=== PATIENT | male | born 1930 | race Caucasian/White ===

== ENCOUNTER 2018-01-01 08:26 | Emergency (ER) | payer MEDICARE, BC ==
--- NOTE | 2018-01-01 08:30 | ED ---
Fall HPI - General Stated Complaint: FALL Time Seen by Provider: 01/01/18 08:28 Source: patient, EMS Mode of arrival: EMS Limitations: no limitations - History of Present Illness Initial Comments: This is a 88-year-old male presents emergency department via EMS from [facility] for a fall. Patient states that he said to get up early this morning in the dark states that he tripped and fell onto his butt. Patient states his pain in his buttocks region and low back. He states is more off to the right side. He denies any head injury. Patient has been ambulatory this morning with moderate discomfort. Patient denies any bowel or bladder incontinence or retention. Denies any abdominal pain including nausea vomiting diarrhea constipation. Denies any dysuria no hematuria. - Related Data Home Medications Medication Instructions Recorded Confirmed Cyanocobalamin (Vitamin B-12) 1,000 mcg PO DAILY 01/01/18 01/01/18 [Vitamin B-12] Docusate [Colace] 100 mg PO DAILY 01/01/18 01/01/18 Vit C/E/Zn/Coppr/Lutein/Zeaxan 1 cap PO DAILY 01/01/18 01/01/18 [Preservision Areds 2 Softgel] Allergies Allergy/AdvReac Type Severity Reaction Status Date / Time No Known Allergies Allergy Verified 01/01/18 08:48 Review of Systems ROS Statement: Those systems with pertinent positive or pertinent negative responses have been documented in the HPI. ROS Other: All systems not noted in ROS Statement are negative. General Exam General appearance: alert, in no apparent distress Head exam: Present: atraumatic, normocephalic, normal inspection Neck exam: Present: normal inspection, full ROM. Absent: tenderness, meningismus, lymphadenopathy Respiratory exam: Present: normal lung sounds bilaterally. Absent: respiratory distress, wheezes, rales, rhonchi, stridor Cardiovascular Exam: Present: regular rate, normal rhythm, normal heart sounds. Absent: systolic murmur, diastolic murmur, rubs, gallop, clicks GI/Abdominal exam: Present: soft, normal bowel sounds. Absent: distended, tenderness, guarding, rebound, rigid Extremities exam: Present: normal inspection, full ROM, normal capillary refill. Absent: tenderness, pedal edema, joint swelling, calf tenderness Back exam: Present: normal inspection, full ROM, tenderness (Minimal right sided lower lumbar tenderness), paraspinal tenderness. Absent: vertebral tenderness Neurological exam: Present: alert, oriented X3, CN II-XII intact, reflexes normal. Absent: motor sensory deficit Skin exam: Present: warm, dry, intact, normal color. Absent: rash Course Vital Signs 01/01/18 08:29 Temperature 97.2 F L Pulse Rate 60 Respiratory 18 Rate Blood Pressure 136/74 O2 Sat by Pulse 100 Oximetry Medical Decision Making - Medical Decision Making 87-year-old male presented from it for a fall. Patient fell by tripping onto his buttocks region. He had x-rays of his lumbar spine and pelvis which showed degenerative changes but no acute fracture. Family is concerned as he has had hard stool out of his ostomy. Patient did have a KUB here which showed extensive constipation. Patient will be advised to use a laxative and increase fluid intake. Patient will follow-up with primary care physician and return for any worsening symptoms. Disposition Clinical Impression: Fall, Back pain, Constipation Disposition: HOME SELF-CARE Condition: Stable Instructions: Back Pain (ED) Additional Instructions: Please return to the Emergency Department if symptoms worsen or any other concerns. Is patient prescribed a controlled substance at d/c from ED?: No Referrals: None,Stated [REFERRING] - 1-2 days Time of Disposition: 09:41
[2018-01-01 08:42] VITALS: PULSE 60; RESP 18; TEMP 97.2
--- NOTE | 2018-01-01 08:54 | XR ---
AP pelvis HISTORY: Trauma and pain Frontal view of the pelvis submitted. Bone mineralization, joint spaces and alignment are maintained. Degenerative disc changes are present in the visualized lumbar spine. Vascular calcification noted in the pelvis. Ostomy suspected in the left lower quadrant. Surgical clips present in the pelvis. IMPRESSION: No acute fracture or dislocation.
--- NOTE | 2018-01-01 08:56 | XR ---
EXAMINATION TYPE: XR lumbosacral spine min 4V DATE OF EXAM: 01/01/2018 COMPARISON: NONE HISTORY: 87-year-old male low back pain after fall TECHNIQUE: 5 views FINDINGS: Osteopenia with levoconvex scoliosis centered along the upper lumbar spine. No pars interarticularis defect seen. Atherosclerotic calcifications throughout the abdominal aorta with ectasia 2.7 cm. Hypertrophic facet arthropathy throughout. There is moderate to advanced dissection plate degenerativ e changes also present throughout with grade 1 retrolisthesis at L4-L5 and trace grade 1 anterolisthe sis at L3-L4. Vertebral body heights are maintained. Disc interspace narrowing with endplate sclerosi s and some vacuum phenomenon at multiple levels. IMPRESSION: 1. Osteopenia and a degenerated levoconvex scoliosis. Moderate to advanced disc/endplate degenerative change at multiple levels. 2. Hypertrophic facet arthropathy throughout with trace grade 1 spondylolistheses at L3-L4 and L4-L5. 3. No vertebral compression collapse. 4. Calcified and ectatic abdominal aorta at 2.7 cm.
--- NOTE | 2018-01-01 09:34 | XR ---
EXAMINATION TYPE: XR KUB DATE OF EXAM: 01/01/2018 COMPARISON: NONE HISTORY: Constipation TECHNIQUE: One view abdominal series FINDINGS: The osseous structures are intact. The bowel gas pattern is nonspecific. Degenerative change of the spine arthropathy of the hips. Calcification the right upper quadrant could be related the gallbladde r. The heart appears to be enlarged. Pleural thickening or tiny effusion at the left lung base with s ubsegmental atelectasis. Suggestion of an ostomy in the left abdomen overlying the pelvis. IMPRESSION: 1. Nonspecific abdomen. Extensive retained fecal debris.
[2018-01-01 09:54] VITALS: BP 126/82
== END 2018-01-01 09:54 | disposition home or self-care (01) ==
LOC: EC 08:26
DX: M54.5 Low back pain (principal); K59.00 Constipation, unspecified; Z79.899 Other long term (current) drug therapy; W01.0XXA Fall on same level from slipping, tripping and stumbling without subsequent striking against object, initial encounter
CPT/HCPCS: 72110; 72170; 74018; 99283

== ENCOUNTER 2018-04-25 14:25 | Emergency (ER) | payer MEDICARE, BC ==
[2018-04-25 14:31] VITALS: TEMP 97.6
[2018-04-25] MEDS ORDERED: SODIUM CHLORIDE 0.9% 500 ML 500 ML IV ONE (15:04)
--- NOTE | 2018-04-25 15:13 | ED ---
General Adult HPI - General Chief complaint: Altered Mental Status Stated complaint: Poss uti Time Seen by Provider: 04/25/18 14:53 Source: patient, EMS, RN notes reviewed, old records reviewed Mode of arrival: EMS Limitations: altered mental status - History of Present Illness Initial comments: 87-year-old male presenting from assisted living facility for evaluation of worsening confusion and aggression. Patient has history of dementia, over the past several days he's had some worsening aggression and agitation. According to his son he's been somewhat more confused. There is concern for urinary tract infection by the patient's family. No reported history nausea vomiting or diarrhea. No history of fever. No reported focal numbness or weakness. Patient has no pain complaints. - Related Data Home Medications Medication Instructions Recorded Confirmed Cyanocobalamin (Vitamin B-12) 1,000 mcg PO DAILY 01/01/18 01/01/18 [Vitamin B-12] Docusate [Colace] 100 mg PO DAILY 01/01/18 01/01/18 Vit C/E/Zn/Coppr/Lutein/Zeaxan 1 cap PO DAILY 01/01/18 01/01/18 [Preservision Areds 2 Softgel] Previous Rx's Medication Instructions Recorded LORazepam [Ativan] 0.5 mg PO BID PRN 3 Days #10 tab 04/25/18 QUEtiapine [SEROquel] 25 mg PO HS #30 tab 04/25/18 Allergies Allergy/AdvReac Type Severity Reaction Status Date / Time No Known Allergies Allergy Verified 04/25/18 14:31 Review of Systems ROS Statement: Those systems with pertinent positive or pertinent negative responses have been documented in the HPI. ROS Other: All systems not noted in ROS Statement are negative. Past Medical History Past Medical History: Cancer History of Any Multi-Drug Resistant Organisms: None Reported Past Surgical History: Bowel Resection Additional Past Surgical History / Comment(s): colostomy Past Psychological History: No Psychological Hx Reported Smoking Status: Former smoker Past Alcohol Use History: None Reported Past Drug Use History: None Reported General Exam Limitations: altered mental status General appearance: alert, in no apparent distress Head exam: Present: atraumatic, normocephalic Eye exam: Present: normal appearance, PERRL, EOMI ENT exam: Present: normal exam Neck exam: Present: normal inspection. Absent: tenderness, meningismus Respiratory exam: Present: normal lung sounds bilaterally. Absent: respiratory distress, wheezes Cardiovascular Exam: Present: regular rate, normal rhythm GI/Abdominal exam: Present: soft. Absent: distended, tenderness, guarding Extremities exam: Present: normal inspection, full ROM Neurological exam: Present: alert, CN II-XII intact. Absent: oriented X3, motor sensory deficit Psychiatric exam: Present: normal affect, normal mood Skin exam: Present: warm, dry, intact. Absent: cyanosis, diaphoretic Course Vital Signs 04/25/18 04/25/18 14:28 16:02 Temperature 97.6 F Pulse Rate 75 69 Respiratory 16 18 Rate Blood Pressure 143/76 132/75 O2 Sat by Pulse 100 98 Oximetry EKG Findings - EKG Comments: EKG Findings:: EKG: Sinus rhythm with first-degree AV block, low voltage QRS, rate of 68, MI interval 2:30, QRS duration 72, QTC 450 Medical Decision Making - Medical Decision Making 87-year-old male history of dementia presents with worsening confusion, hallucination, aggression and agitation. Patient is worked up in the emergency department, head CT negative for acute intracranial pathology, chest x-ray negative for focal pneumonia, urinalysis negative for infection. Patient has normal CBC and normal CMP. Initial plan per family for patient to be admitted while awaiting stabilization of mood. However after discussion, it is decided that patient will be discharged home on Seroquel and a short course of Ativan. I did discuss with the patient's covering physician Dr. Fregoso, she was agreeable with observation however she is recommended Seroquel daily at bedtime as well. Patient's son was at bedside is agreeable with plan. - Lab Data Result diagrams: 04/25/18 15:27 04/25/18 15:27 Lab Results 04/25/18 04/25/18 04/25/18 Range/Units 15:27 15:27 15:27 WBC 8.9 (3.8-10.6) k/uL RBC 3.81 L (4.30-5.90) m/uL Hgb 12.0 L (13.0-17.5) gm/dL Hct 37.1 L (39.0-53.0) % MCV 97.2 (80.0-100.0) fL MCH 31.4 (25.0-35.0) pg MCHC 32.3 (31.0-37.0) g/dL RDW 13.6 (11.5-15.5) % Plt Count 191 (150-450) k/uL Neutrophils % 74 % Lymphocytes % 14 % Monocytes % 7 % Eosinophils % 2 % Basophils % 1 % Neutrophils # 6.6 (1.3-7.7) k/uL Lymphocytes # 1.3 (1.0-4.8) k/uL Monocytes # 0.7 (0-1.0) k/uL Eosinophils # 0.2 (0-0.7) k/uL Basophils # 0.0 (0-0.2) k/uL PT 11.4 (9.0-12.0) sec INR 1.2 H (<1.2) APTT 24.1 (22.0-30.0) sec Sodium 141 (137-145) mmol/L Potassium 4.3 (3.5-5.1) mmol/L Chloride 109 H (98-107) mmol/L Carbon Dioxide 26 (22-30) mmol/L Anion Gap 6 mmol/L BUN 18 (9-20) mg/dL Creatinine 0.89 (0.66-1.25) mg/dL Est GFR (CKD-EPI)AfAm 88 (>60 ml/min/1.73 sqM) Est GFR (CKD-EPI)NonAf 76 (>60 ml/min/1.73 sqM) Glucose 92 (74-99) mg/dL Calcium 9.3 (8.4-10.2) mg/dL Total Bilirubin 0.9 (0.2-1.3) mg/dL AST 44 (17-59) U/L ALT 27 (21-72) U/L Alkaline Phosphatase 35 L (38-126) U/L Total Protein 5.7 L (6.3-8.2) g/dL Albumin 3.3 L (3.5-5.0) g/dL Urine Color Urine Appearance (Clear) Urine pH (5.0-8.0) Ur Specific [place] (1.001-1.035) Urine Protein (Negative) Urine Glucose (UA) (Negative) Urine Ketones (Negative) Urine Blood (Negative) Urine Nitrite (Negative) Urine Bilirubin (Negative) Urine Urobilinogen (<2.0) mg/dL Ur Leukocyte Esterase (Negative) Urine RBC (0-5) /hpf Urine WBC (0-5) /hpf Urine Mucus (None) /hpf 04/25/18 Range/Units 15:27 WBC (3.8-10.6) k/uL RBC (4.30-5.90) m/uL Hgb (13.0-17.5) gm/dL Hct (39.0-53.0) % MCV (80.0-100.0) fL MCH (25.0-35.0) pg MCHC (31.0-37.0) g/dL RDW (11.5-15.5) % Plt Count (150-450) k/uL Neutrophils % % Lymphocytes % % Monocytes % % Eosinophils % % Basophils % % Neutrophils # (1.3-7.7) k/uL Lymphocytes # (1.0-4.8) k/uL Monocytes # (0-1.0) k/uL Eosinophils # (0-0.7) k/uL Basophils # (0-0.2) k/uL PT (9.0-12.0) sec INR (<1.2) APTT (22.0-30.0) sec Sodium (137-145) mmol/L Potassium (3.5-5.1) mmol/L Chloride (98-107) mmol/L Carbon Dioxide (22-30) mmol/L Anion Gap mmol/L BUN (9-20) mg/dL Creatinine (0.66-1.25) mg/dL Est GFR (CKD-EPI)AfAm (>60 ml/min/1.73 sqM) Est GFR (CKD-EPI)NonAf (>60 ml/min/1.73 sqM) Glucose (74-99) mg/dL Calcium (8.4-10.2) mg/dL Total Bilirubin (0.2-1.3) mg/dL AST (17-59) U/L ALT (21-72) U/L Alkaline Phosphatase (38-126) U/L Total Protein (6.3-8.2) g/dL Albumin (3.5-5.0) g/dL Urine Color Yellow Urine Appearance Clear (Clear) Urine pH 6.5 (5.0-8.0) Ur Specific [place] 1.012 (1.001-1.035) Urine Protein Negative (Negative) Urine Glucose (UA) Negative (Negative) Urine Ketones Negative (Negative) Urine Blood Negative (Negative) Urine Nitrite Negative (Negative) Urine Bilirubin Negative (Negative) Urine Urobilinogen <2.0 (<2.0) mg/dL Ur Leukocyte Esterase Negative (Negative) Urine RBC 2 (0-5) /hpf Urine WBC <1 (0-5) /hpf Urine Mucus Rare H (None) /hpf Disposition Clinical Impression: Dementia Disposition: HOME SELF-CARE Condition: Fair Instructions: Dementia (ED) Prescriptions: LORazepam [Ativan] 0.5 mg PO BID PRN 3 Days #10 tab PRN Reason: Agitation QUEtiapine [SEROquel] 25 mg PO HS #30 tab Is patient prescribed a controlled substance at d/c from ED?: No Referrals: Manan Muñoz MD [Primary Care Provider] - 1-2 days Time of Disposition: 17:23
[2018-04-25 15:44] LABS: INR 1.2 (<1.2); Partial Thromboplastin Time 24.1 sec (22.0-30.0); Prothrombin Time 11.4 sec (9.0-12.0)
[2018-04-25 15:45] LABS: Mucus,Urine Rare /hpf; RBC,Urine 2 /hpf (0-5); WBC,Urine <1 /hpf (0-5)
[2018-04-25 15:47] LABS: Albumin 3.3 g/dL (3.5-5.0); Calcium 9.3 mg/dL (8.4-10.2); Potassium 4.3 mmol/L (3.5-5.1); Total Bilirubin 0.9 mg/dL (0.2-1.3); Total Protein 5.7 g/dL (6.3-8.2)
[2018-04-25 15:48] LABS: Appearance,Urine Clear (Clear); Bilirubin,Urine Negative (Negative); Blood,Urine Negative (Negative); Color,Urine Yellow; Glucose,Urine (UA) Negative (Negative); Ketones,Urine Negative (Negative); Leukocyte Esterase,Urine Negative (Negative); Nitrite,Urine Negative (Negative); PH, Urine 6.5 (5.0-8.0); Protein,Urine Negative (Negative); Specific Gravity,Urine 1.012 (1.001-1.035); Urobilinogen,Urine <2.0 mg/dL (<2.0)
--- NOTE | 2018-04-25 15:59 | CT ---
EXAMINATION TYPE: CT brain wo con DATE OF EXAM: 04/25/2018 COMPARISON: None HISTORY: AMS CT DLP: A1051.4 mGycm Automated exposure control for dose reduction was used. FINDINGS: There is cerebral cortical atrophy. There is no mass effect nor midline shift. There is no sign of in tracranial hemorrhage. The calvarium is intact. IMPRESSION: CEREBRAL ATROPHY. NO ACUTE INTRACRANIAL ABNORMALITY.
--- NOTE | 2018-04-25 16:01 | XR ---
EXAMINATION TYPE: XR chest 2V DATE OF EXAM: 04/25/2018 COMPARISON: 11/27/2010 HISTORY: Altered mental status TECHNIQUE: Frontal and lateral views of the chest are obtained. FINDINGS: There is no heart failure nor confluent pneumonic infiltrate. Thoracic aorta is atheromato us. Costophrenic angles are clear. The bony thorax is intact. IMPRESSION: No active cardiopulmonary disease. No change. Normal heart.
[2018-04-25 16:03] VITALS: RESP 18
[2018-04-25 16:04] LABS: Basophils % (A) 1 %; Eosinophils # (A) 0.2 k/uL (0-0.7); Eosinophils % (A) 2 %; HCT 37.1 % (39.0-53.0); Lymphocytes # (A) 1.3 k/uL (1.0-4.8); Lymphocytes % (A) 14 %; MCH 31.4 pg (25.0-35.0); MCHC 32.3 g/dL (31.0-37.0); MCV 97.2 fL (80.0-100.0); Mean Platelet Volume 6.8; Monocytes # (A) 0.7 k/uL (0-1.0); Monocytes % (A) 7 %; Neutrophils # (A) 6.6 k/uL (1.3-7.7); Neutrophils % (A) 74 %; Platelet Count 191 k/uL (150-450); RBC 3.81 m/uL (4.30-5.90); RDW 13.6 % (11.5-15.5); WBC 8.9 k/uL (3.8-10.6)
[2018-04-25] MEDS ORDERED: QUEtiapine 25 MG TAB PO STA (16:43)
[2018-04-25] MEDS ORDERED: LORazepam 1 MG TAB PO STA (17:33)
[2018-04-25 17:45] VITALS: BP 135/82; PULSE 77
== END 2018-04-25 17:44 | disposition home or self-care (01) ==
LOC: EC 14:25
DX: F03.91 Unspecified dementia, unspecified severity, with behavioral disturbance (principal); Z85.9 Personal history of malignant neoplasm, unspecified; Z87.891 Personal history of nicotine dependence; Z79.899 Other long term (current) drug therapy
CPT/HCPCS: 36415; 70450; 71046; 80053; 81003; 85025; 85610; 85730; 93005; 96360; 99285

== ENCOUNTER 2018-04-27 13:00 | Inpatient (IN) | payer MEDICARE, BC ==
--- NOTE | 2018-04-27 13:29 | ED ---
General Adult HPI - General Chief complaint: Recheck/Abnormal Lab/Rx Stated complaint: Med reaction Time Seen by Provider: 04/27/18 13:15 Source: EMS, RN notes reviewed Mode of arrival: EMS Limitations: altered mental status - History of Present Illness Initial comments: Patient is a pleasant 87-year-old male presenting to the emergency Department with complaints of reported change in mental status. Patient is altered and provides limited history. Patient was reportedly recently in the emergency department and started on Seroquel. Patient denies any complaints. - Related Data Home Medications Medication Instructions Recorded Confirmed Docusate [Colace] 100 mg PO HS 01/01/18 04/27/18 Vit C/E/Zn/Coppr/Lutein/Zeaxan 1 cap PO DAILY 01/01/18 04/27/18 [Preservision Areds 2 Softgel] Acetaminophen/Diphenhydramine 1 - 2 tab PO HS 04/27/18 04/27/18 [Tylenol PM 500-25mg] Aspirin EC [Ecotrin Low Dose] 81 mg PO HS 04/27/18 04/27/18 Hydrochlorothiazide 12.5 mg PO DAILY 04/27/18 04/27/18 LORazepam [Ativan] 0.5 mg PO BID PRN 04/27/18 04/27/18 Melatonin 10 mg PO HS PRN 04/27/18 04/27/18 OLANZapine [ZyPREXA] 2.5 mg PO HS 04/27/18 04/27/18 QUEtiapine [SEROquel] 25 mg PO HS 04/27/18 04/27/18 Super B Complex 1 tab PO DAILY 04/27/18 04/27/18 diphenhydrAMINE [Benadryl] 25 mg PO HS PRN 04/27/18 04/27/18 Allergies Allergy/AdvReac Type Severity Reaction Status Date / Time No Known Allergies Allergy Verified 04/27/18 14:41 Review of Systems ROS Statement: Those systems with pertinent positive or pertinent negative responses have been documented in the HPI. ROS Other: All systems not noted in ROS Statement are negative. Constitutional: Denies: fever Eyes: Denies: eye pain ENT: Denies: ear pain Respiratory: Denies: dyspnea Cardiovascular: Denies: chest pain Endocrine: Denies: fatigue Gastrointestinal: Denies: abdominal pain Genitourinary: Denies: dysuria Musculoskeletal: Denies: back pain Skin: Denies: rash Neurological: Reports: confusion Past Medical History Past Medical History: Cancer History of Any Multi-Drug Resistant Organisms: None Reported Past Surgical History: Bowel Resection Additional Past Surgical History / Comment(s): colostomy Past Psychological History: No Psychological Hx Reported Smoking Status: Former smoker Past Alcohol Use History: None Reported Past Drug Use History: None Reported General Exam Limitations: altered mental status General appearance: alert, in no apparent distress Head exam: Present: atraumatic Eye exam: Present: normal appearance, PERRL, EOMI ENT exam: Present: normal oropharynx Neck exam: Present: normal inspection. Absent: tenderness Respiratory exam: Present: normal lung sounds bilaterally Cardiovascular Exam: Present: regular rate, normal rhythm GI/Abdominal exam: Present: soft. Absent: tenderness Extremities exam: Present: normal inspection. Absent: pedal edema, calf tenderness Neurological exam: Present: alert, altered, CN II-XII intact. Absent: motor sensory deficit Expanded Patient oriented to: Absent: person, place, time Cranial nerves: EOM's Intact: Normal Motor strength exam: RUE: 5, LUE: 5, RLE: 5, LLE: 5 Eye Response: (4) open spontaneously Motor Response: (6) obeys commands Verbal Response: (3) inappropriate words Psychiatric exam: Present: normal affect, normal mood Skin exam: Present: normal color Course Vital Signs 04/27/18 04/27/18 04/27/18 13:07 13:30 14:00 Temperature 98.0 F Pulse Rate 66 71 73 Respiratory 20 15 16 Rate Blood Pressure 157/83 157/83 145/78 O2 Sat by Pulse 96 98 97 Oximetry 04/27/18 04/27/18 14:30 15:30 Temperature Pulse Rate 75 71 Respiratory 14 18 Rate Blood Pressure 141/81 142/79 O2 Sat by Pulse 96 Oximetry EKG Findings - EKG Comments: EKG Findings:: Sinus rhythm at 71. First-degree AV block NH of 210. QRS 96. QT 448. QTC 46. Normal axis. Q wave in V1 and V2. No acute ST change. Medical Decision Making - Medical Decision Making Patient reevaluated. Patient was somewhat agitated earlier with nursing staff. Family is updated on results and plan. Case was discussed in detail with Dr. Cochran, covering for Dr. Muñoz, who will admit. - Lab Data Result diagrams: 04/27/18 13:36 04/27/18 13:36 Lab Results 04/27/18 04/27/18 04/27/18 Range/Units 13:36 13:36 13:36 WBC 8.2 (3.8-10.6) k/uL RBC 3.91 L (4.30-5.90) m/uL Hgb 12.6 L (13.0-17.5) gm/dL Hct 37.5 L (39.0-53.0) % MCV 96.1 (80.0-100.0) fL MCH 32.3 (25.0-35.0) pg MCHC 33.7 (31.0-37.0) g/dL RDW 13.5 (11.5-15.5) % Plt Count 199 (150-450) k/uL Neutrophils % 71 % Lymphocytes % 17 % Monocytes % 7 % Eosinophils % 4 % Basophils % 1 % Neutrophils # 5.8 (1.3-7.7) k/uL Lymphocytes # 1.4 (1.0-4.8) k/uL Monocytes # 0.6 (0-1.0) k/uL Eosinophils # 0.4 (0-0.7) k/uL Basophils # 0.1 (0-0.2) k/uL PT (9.0-12.0) sec INR (<1.2) APTT (22.0-30.0) sec Sodium 140 (137-145) mmol/L Potassium 4.0 (3.5-5.1) mmol/L Chloride 107 (98-107) mmol/L Carbon Dioxide 29 (22-30) mmol/L Anion Gap 4 mmol/L BUN 16 (9-20) mg/dL Creatinine 0.76 (0.66-1.25) mg/dL Est GFR (CKD-EPI)AfAm >90 (>60 ml/min/1.73 sqM) Est GFR (CKD-EPI)NonAf 81 (>60 ml/min/1.73 sqM) Glucose 91 (74-99) mg/dL Calcium 9.5 (8.4-10.2) mg/dL Total Bilirubin 1.0 (0.2-1.3) mg/dL AST 84 H (17-59) U/L ALT 37 (21-72) U/L Alkaline Phosphatase 35 L (38-126) U/L Total Creatine Kinase 1230 H* (55-170) U/L CK-MB (CK-2) 26.2 H (0.0-2.4) ng/mL CK-MB (CK-2) Rel Index 2.1 Troponin I 0.134 H* (0.000-0.034) ng/mL Total Protein 6.0 L (6.3-8.2) g/dL Albumin 3.5 (3.5-5.0) g/dL Urine Color Urine Appearance (Clear) Urine pH (5.0-8.0) Ur Specific [place] (1.001-1.035) Urine Protein (Negative) Urine Glucose (UA) (Negative) Urine Ketones (Negative) Urine Blood (Negative) Urine Nitrite (Negative) Urine Bilirubin (Negative) Urine Urobilinogen (<2.0) mg/dL Ur Leukocyte Esterase (Negative) Urine Opiates Screen (NotDetected) Ur Oxycodone Screen (NotDetected) Urine Methadone Screen (NotDetected) Ur Propoxyphene Screen (NotDetected) Ur Barbiturates Screen (NotDetected) U Tricyclic Antidepress (NotDetected) Ur Phencyclidine Scrn (NotDetected) Ur Amphetamines Screen (NotDetected) U Methamphetamines Scrn (NotDetected) U Benzodiazepines Scrn (NotDetected) Urine Cocaine Screen (NotDetected) U Marijuana (THC) Screen (NotDetected) 04/27/18 04/27/18 Range/Units 13:36 14:00 WBC (3.8-10.6) k/uL RBC (4.30-5.90) m/uL Hgb (13.0-17.5) gm/dL Hct (39.0-53.0) % MCV (80.0-100.0) fL MCH (25.0-35.0) pg MCHC (31.0-37.0) g/dL RDW (11.5-15.5) % Plt Count (150-450) k/uL Neutrophils % % Lymphocytes % % Monocytes % % Eosinophils % % Basophils % % Neutrophils # (1.3-7.7) k/uL Lymphocytes # (1.0-4.8) k/uL Monocytes # (0-1.0) k/uL Eosinophils # (0-0.7) k/uL Basophils # (0-0.2) k/uL PT 11.1 (9.0-12.0) sec INR 1.2 H (<1.2) APTT 24.4 (22.0-30.0) sec Sodium (137-145) mmol/L Potassium (3.5-5.1) mmol/L Chloride (98-107) mmol/L Carbon Dioxide (22-30) mmol/L Anion Gap mmol/L BUN (9-20) mg/dL Creatinine (0.66-1.25) mg/dL Est GFR (CKD-EPI)AfAm (>60 ml/min/1.73 sqM) Est GFR (CKD-EPI)NonAf (>60 ml/min/1.73 sqM) Glucose (74-99) mg/dL Calcium (8.4-10.2) mg/dL Total Bilirubin (0.2-1.3) mg/dL AST (17-59) U/L ALT (21-72) U/L Alkaline Phosphatase (38-126) U/L Total Creatine Kinase (55-170) U/L CK-MB (CK-2) (0.0-2.4) ng/mL CK-MB (CK-2) Rel Index Troponin I (0.000-0.034) ng/mL Total Protein (6.3-8.2) g/dL Albumin (3.5-5.0) g/dL Urine Color Yellow Urine Appearance Clear (Clear) Urine pH 5.5 (5.0-8.0) Ur Specific [place] 1.015 (1.001-1.035) Urine Protein Negative (Negative) Urine Glucose (UA) Negative (Negative) Urine Ketones Trace H (Negative) Urine Blood Negative (Negative) Urine Nitrite Negative (Negative) Urine Bilirubin Negative (Negative) Urine Urobilinogen <2.0 (<2.0) mg/dL Ur Leukocyte Esterase Negative (Negative) Urine Opiates Screen Not Detected (NotDetected) Ur Oxycodone Screen Not Detected (NotDetected) Urine Methadone Screen Not Detected (NotDetected) Ur Propoxyphene Screen Not Detected (NotDetected) Ur Barbiturates Screen Not Detected (NotDetected) U Tricyclic Antidepress Detected H (NotDetected) Ur Phencyclidine Scrn Not Detected (NotDetected) Ur Amphetamines Screen Not Detected (NotDetected) U Methamphetamines Scrn Not Detected (NotDetected) U Benzodiazepines Scrn Detected H (NotDetected) Urine Cocaine Screen Not Detected (NotDetected) U Marijuana (THC) Screen Not Detected (NotDetected) - Radiology Data Radiology results: report reviewed (Computed tomography scan of the brain reveals no acute process), image reviewed (Chest x-ray shows no acute process) Disposition Clinical Impression: Altered mental status Disposition: ADMITTED IP TO THIS HOSP Is patient prescribed a controlled substance at d/c from ED?: No Referrals: None,Stated [REFERRING] - 1-2 days Decision Time: 16:23
[2018-04-27 14:00] LABS: Basophils # (A) 0.1 k/uL (0-0.2); Basophils % (A) 1 %; Eosinophils # (A) 0.4 k/uL (0-0.7); Eosinophils % (A) 4 %; HCT 37.5 % (39.0-53.0); HGB 12.6 gm/dL (13.0-17.5); Lymphocytes # (A) 1.4 k/uL (1.0-4.8); Lymphocytes % (A) 17 %; MCH 32.3 pg (25.0-35.0); MCHC 33.7 g/dL (31.0-37.0); MCV 96.1 fL (80.0-100.0); Mean Platelet Volume 7.6; Monocytes # (A) 0.6 k/uL (0-1.0); Monocytes % (A) 7 %; Neutrophils # (A) 5.8 k/uL (1.3-7.7); Neutrophils % (A) 71 %; Platelet Count 199 k/uL (150-450); RBC 3.91 m/uL (4.30-5.90); RDW 13.5 % (11.5-15.5); WBC 8.2 k/uL (3.8-10.6)
[2018-04-27 14:10] LABS: ALT 37 U/L (21-72); AST 84 U/L (17-59); Albumin 3.5 g/dL (3.5-5.0); Alkaline Phosphatase 35 U/L (38-126); Anion Gap 4 mmol/L; Blood Urea Nitrogen 16 mg/dL (9-20); Calcium 9.5 mg/dL (8.4-10.2); Carbon Dioxide 29 mmol/L (22-30); Chloride 107 mmol/L (98-107); Glucose 91 mg/dL (74-99); Sodium 140 mmol/L (137-145)
[2018-04-27 14:15] LABS: INR 1.2 (<1.2); Partial Thromboplastin Time 24.4 sec (22.0-30.0); Prothrombin Time 11.1 sec (9.0-12.0)
[2018-04-27 14:35] LABS: Creatine Kinase MB 26.2 ng/mL (0.0-2.4)
[2018-04-27 14:46] LABS: Troponin I 0.134 ng/mL (0.000-0.034)
[2018-04-27 15:02] LABS: Appearance,Urine Clear (Clear); Bilirubin,Urine Negative (Negative); Blood,Urine Negative (Negative); Color,Urine Yellow; Glucose,Urine (UA) Negative (Negative); Ketones,Urine Trace (Negative); Leukocyte Esterase,Urine Negative (Negative); Nitrite,Urine Negative (Negative); PH, Urine 5.5 (5.0-8.0); Protein,Urine Negative (Negative); Specific Gravity,Urine 1.015 (1.001-1.035); Urobilinogen,Urine <2.0 mg/dL (<2.0)
[2018-04-27 15:11] LABS: Amphetamine Screen,Urine Not Detected (NotDetected); Barbiturate Screen,Urine Not Detected (NotDetected); Benzodiazepines Screen,Urine Detected (NotDetected); Cocaine Screen,Urine Not Detected (NotDetected); Methadone Screen, Urine Not Detected (NotDetected); Opiate Screen,Urine Not Detected (NotDetected); Oxycodone Screen, Urine Not Detected (NotDetected); Phencyclidine Screen,Urine Not Detected (NotDetected); Tricyclic Antidepressant,Urine Detected (NotDetected); Urn Cannabinoid Scrn Not Detected (NotDetected)
--- NOTE | 2018-04-27 15:12 | CT ---
EXAMINATION TYPE: CT brain wo con DATE OF EXAM: 04/27/2018 COMPARISON: 04/17/2018 HISTORY: Altered mental status. CT DLP: 1069.[address] of the brain was performed. The ventricles, basal cisterns and sulci overlying the cerebral convexities demonstrate mild enlargem ent. There is no evidence for intracranial hemorrhage or sulcal effacement. There is decreased attenuation about the periventricular white matter and deep white matter of both c erebral hemispheres, compatible with chronic small vessel ischemia. Differential diagnosis does inclu de demyelination. No mass effects are seen.No midline shift. Osseous calvarium is intact. If symptoms persist consider MRI. IMPRESSION: 1. Age related atrophic and chronic small vessel ischemic change without acute intracranial process s een at this time.
--- NOTE | 2018-04-27 15:30 | XR ---
EXAMINATION TYPE: XR chest 1V DATE OF EXAM: 04/27/2018 HISTORY: Shortness of breath. COMPARISON: 04/25/2018 TECHNIQUE: Single view of the chest is submitted. FINDINGS: Demonstrated are scattered senescent parenchymal change. There is no evidence for focal infiltrate. The heart is stable. Hilar and mediastinal structures are within normal limits. Degenerative changes are seen of the dorsal spine. IMPRESSION: 1. Chronic changes without evidence for acute pulmonary disease.
[2018-04-27] MEDS ORDERED: LORazepam 2 MG/ML INJ IV PRN ×2 (16:19→18:04)
[2018-04-27] MEDS ORDERED: NALOXONE 0.4 MG/ML 1 ML VIAL IV PRN (16:23)
[2018-04-27] MEDS ORDERED: SODIUM CHLORIDE 0.9% 1,000 ML IV SCH (16:30)
[2018-04-27] MEDS ORDERED: ASPIRIN 81 MG PO STA (16:32)
[2018-04-27] MEDS ORDERED: HALOPERIDOL LACTATE 5 MG/ML 1 ML VIAL IVP PRN (18:42)
[2018-04-27] MEDS: HEPARIN SODIUM,PORCINE 5,000 UNIT/ML 1 ML VIAL SQ SCH ×3 (18:57→23:26)
[2018-04-27 20:06] LABS: Creatine Kinase MB 27.6 ng/mL (0.0-2.4)
[2018-04-27 20:07] LABS: Troponin I 0.152 ng/mL (0.000-0.034)
--- NOTE | 2018-04-27 21:59 | P.CNNES ---
History of Present Illness Consult date: 04/27/18 History of Present Illness: The patient is an 87-year-old man who lives in assisted living facility who presented to the emergency department with altered mental status. Patient has no specific complaints. Has a history of dementia and is a poor historian. The patient presented to [facility] emergency room recently and was started on Seroquel. The patient had a CAT scan of the brain which showed no acute abnormality. The patient has a history of colon cancer. The patient keeps his eyes closed during much of the examination. Denies headache or focal weakness numbness visual changes. Apparently the patient is normally very active. The patient states that he recently moved from [place] however his history is not reliable. Review of Systems ROS unobtainable: due to mental status Past Medical History Past Medical History: Cancer, Dementia, Memory Impairment Additional Past Medical History / Comment(s): falls, past uti, colon cancer/ colostomy, incont of urine, past took meds for high choleterol -none now. macular degeneration. per family -up most of the night/walks around.uses walker/ cane. 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 Past Anesthesia/Blood Transfusion Reactions: Previous Problems w/ Anesthesia Additional Past Anesthesia/Blood Transfusion Reaction / Comment(s): has had increased confusion/hallucinations after sx. Smoking Status: Former smoker - Past Family History Father Additional Family Medical History / Comment(s): 'heart problems" Mother Additional Family Medical History / Comment(s): "heart problems" Medications and Allergies Home Medications Medication Instructions Recorded Confirmed Type Docusate [Colace] 100 mg PO HS 01/01/18 04/27/18 History Vit C/E/Zn/Coppr/Lutein/Zeaxan 1 cap PO DAILY 01/01/18 04/27/18 History [Preservision Areds 2 Softgel] Acetaminophen/Diphenhydramine 1 - 2 tab PO HS 04/27/18 04/27/18 History [Tylenol PM 500-25mg] Aspirin EC [Ecotrin Low Dose] 81 mg PO HS 04/27/18 04/27/18 History Hydrochlorothiazide 12.5 mg PO DAILY 04/27/18 04/27/18 History LORazepam [Ativan] 0.5 mg PO BID PRN 04/27/18 04/27/18 History Melatonin 10 mg PO HS PRN 04/27/18 04/27/18 History OLANZapine [ZyPREXA] 2.5 mg PO HS 04/27/18 04/27/18 History QUEtiapine [SEROquel] 25 mg PO HS 04/27/18 04/27/18 History Super B Complex 1 tab PO DAILY 04/27/18 04/27/18 History diphenhydrAMINE [Benadryl] 25 mg PO HS PRN 04/27/18 04/27/18 History Allergies Allergy/AdvReac Type Severity Reaction Status Date / Time No Known Allergies Allergy Verified 04/27/18 14:41 Physical Examination - Vital Signs Vital Signs: Vital Signs Temp Pulse Pulse Resp BP BP Pulse Ox 04/27/18 18:14 97.1 F L 85 20 142/86 100 04/27/18 15:30 71 18 142/79 96 04/27/18 14:30 75 14 141/81 04/27/18 14:00 73 16 145/78 97 04/27/18 13:30 71 15 157/83 98 04/27/18 13:07 98.0 F 66 20 157/83 96 Intake and Output 04/27/18 04/27/18 04/27/18 06:59 14:59 22:59 Other: Weight 79.379 kg - Constitutional General appearance: cooperative - EENT EENT: PERRL, hearing intact, vision intact - Respiratory Respiratory: lungs clear - Cardiovascular Cardiovascular: regular rate, normal S1, normal S2 - Neurologic Neurologic examination: Mental status: He was awake he was oriented he followed commands he is he knew he lived in [place] he knew it was March he thought the year was 1998 he knew the state is [place] he was able to add and he was able to spell asymptomatic Cranial nerves II through XII: Intact next Motor examination: 5 out of 5 throughout Sensory examination: Intact to light touch Deep tendon reflexes all and symmetric Gait: Not tested Results - Laboratory Findings CBC and BMP: 04/27/18 13:36 04/27/18 13:36 Abnormal Lab Findings: Abnormal Labs 04/27/18 04/27/18 04/27/18 13:36 13:36 13:36 RBC 3.91 L Hgb 12.6 L Hct 37.5 L INR AST 84 H Alkaline Phosphatase 35 L Total Creatine Kinase 1230 H* CK-MB (CK-2) 26.2 H Troponin I 0.134 H* Total Protein 6.0 L Urine Ketones U Tricyclic Antidepress U Benzodiazepines Scrn 04/27/18 04/27/18 04/27/18 13:36 14:00 19:19 RBC Hgb Hct INR 1.2 H AST Alkaline Phosphatase Total Creatine Kinase 1458 H* CK-MB (CK-2) 27.6 H Troponin I 0.152 H* Total Protein Urine Ketones Trace H U Tricyclic Antidepress Detected H U Benzodiazepines Scrn Detected H Assessment and Plan (1) Altered mental status Current Visit: Yes Status: Acute SNOMED Code(s): 675271421 (2) Dementia Current Visit: No Status: Acute SNOMED Code(s): 80494483 Plan: The patient is an 87-year-old man with history of dementia who is pleasantly confused and presents to the hospital with altered mental status. Neurologically examination is nonfocal. It appears that he may be having some visual hallucinations. Recommend EEG and psychiatry evaluation. Recommend physical therapy and social work consult
[2018-04-28 02:18] LABS: Creatine Kinase MB 20.1 ng/mL (0.0-2.4)
[2018-04-28 02:21] LABS: Troponin I 0.188 ng/mL (0.000-0.034)
[2018-04-28 07:38] LABS: Basophils # (A) 0.1 k/uL (0-0.2); Basophils % (A) 1 %; Eosinophils # (A) 0.4 k/uL (0-0.7); Eosinophils % (A) 5 %; HCT 39.6 % (39.0-53.0); HGB 13.1 gm/dL (13.0-17.5); Lymphocytes # (A) 1.5 k/uL (1.0-4.8); Lymphocytes % (A) 19 %; MCH 31.9 pg (25.0-35.0); MCHC 33.1 g/dL (31.0-37.0); MCV 96.4 fL (80.0-100.0); Mean Platelet Volume 7.4; Monocytes # (A) 0.6 k/uL (0-1.0); Monocytes % (A) 7 %; Neutrophils # (A) 5.6 k/uL (1.3-7.7); Neutrophils % (A) 68 %; Platelet Count 211 k/uL (150-450); RDW 13.4 % (11.5-15.5); WBC 8.3 k/uL (3.8-10.6)
[2018-04-28 07:49] LABS: ALT 39 U/L (21-72); AST 95 U/L (17-59); Albumin 3.6 g/dL (3.5-5.0); Alkaline Phosphatase 41 U/L (38-126); Anion Gap 6 mmol/L; Blood Urea Nitrogen 15 mg/dL (9-20); Calcium 9.5 mg/dL (8.4-10.2); Carbon Dioxide 29 mmol/L (22-30); Chloride 106 mmol/L (98-107); Glucose 75 mg/dL (74-99); Potassium 4.5 mmol/L (3.5-5.1); Sodium 141 mmol/L (137-145); Total Bilirubin 1.2 mg/dL (0.2-1.3); Total Protein 6.1 g/dL (6.3-8.2)
--- NOTE | 2018-04-28 10:24 | P.CRDCN ---
History of Present Illness Consult date: 04/28/18 Requesting physician: Linh Barajas Reason for Consult (text): Abnormal troponin Chief complaint: Mental status changes History of present illness: His is a 87-year-old gentleman history was obtained from the son who is at bedside. Patient has a history of Alzheimer's dementia, no hypertension, no diabetes, no hyperlipidemia who according to the son was walking up to a couple miles a day up to 2 weeks ago. He has been noticed to have progression in his Alzheimer's dementia. He was brought to the emergency room because of mental status changes and hallucinations and was started on Seroquel. According to the son, he went over to his home and he was much more confused than usual, he was actually on the floor, had lost control of his urine, somewhat unresponsive at times, he was combative on arrival here. Troponins were drawn in the emergency room and for this reason a cardiology consultation was obtained. Brain CT on arrival here showed age-related atrophic and chronic small vessel ischemic change without acute intracranial process. Chest x-ray showed chronic changes without evidence for acute pulmonary disease. EKG showed normal sinus rhythm with no acute changes. Blood pressure on arrival here 157/80 with a heart rate in the 60s, 96% on room air. White blood cell count 8.3, hemoglobin 13.1, platelet count 211. Sodium 141, potassium 4.5, BUN 15, creatinine 0.8. CK 12:30, 1458, 1262. MB 26.2, 27.6, 20.1. Troponin 0.13 , 0.15, 0.18. At the time of my examination this morning, patient is sleeping, difficult to arouse, apparently did not sleep much through the night last night. Past Medical History Past Medical History: Cancer, Dementia, Memory Impairment Additional Past Medical History / Comment(s): falls, past uti, colon cancer/ colostomy, incont of urine, past took meds for high choleterol -none now. macular degeneration. per family -up most of the night/walks around.uses walker/ cane. 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 Past Anesthesia/Blood Transfusion Reactions: Previous Problems w/ Anesthesia Additional Past Anesthesia/Blood Transfusion Reaction / Comment(s): has had increased confusion/hallucinations after sx. Smoking Status: Former smoker - Past Family History Father Additional Family Medical History / Comment(s): 'heart problems" Mother Additional Family Medical History / Comment(s): "heart problems" Medications and Allergies Home Medications Medication Instructions Recorded Confirmed Type Docusate [Colace] 100 mg PO HS 01/01/18 04/27/18 History Vit C/E/Zn/Coppr/Lutein/Zeaxan 1 cap PO DAILY 01/01/18 04/27/18 History [Preservision Areds 2 Softgel] Acetaminophen/Diphenhydramine 1 - 2 tab PO HS 04/27/18 04/27/18 History [Tylenol PM 500-25mg] Aspirin EC [Ecotrin Low Dose] 81 mg PO HS 04/27/18 04/27/18 History Hydrochlorothiazide 12.5 mg PO DAILY 04/27/18 04/27/18 History LORazepam [Ativan] 0.5 mg PO BID PRN 04/27/18 04/27/18 History Melatonin 10 mg PO HS PRN 04/27/18 04/27/18 History OLANZapine [ZyPREXA] 2.5 mg PO HS 04/27/18 04/27/18 History QUEtiapine [SEROquel] 25 mg PO HS 04/27/18 04/27/18 History Super B Complex 1 tab PO DAILY 04/27/18 04/27/18 History diphenhydrAMINE [Benadryl] 25 mg PO HS PRN 04/27/18 04/27/18 History Allergies Allergy/AdvReac Type Severity Reaction Status Date / Time No Known Allergies Allergy Verified 04/27/18 14:41 Physical Exam Vitals: Vital Signs Temp Pulse Pulse Resp BP BP Pulse Ox 04/28/18 04:00 97.5 F L 82 16 136/72 96 04/28/18 00:00 97.1 F L 81 17 131/67 97 04/27/18 20:00 97.7 F 83 16 144/75 100 04/27/18 18:14 97.1 F L 85 20 142/86 100 04/27/18 15:30 71 18 142/79 96 04/27/18 14:30 75 14 141/81 04/27/18 14:00 73 16 145/78 97 04/27/18 13:30 71 15 157/83 98 04/27/18 13:07 98.0 F 66 20 157/83 96 Intake and Output 04/27/18 04/28/18 04/28/18 22:59 06:59 14:59 Intake Total 20 80 Balance 20 80 Intake: IV 20 20 Invasive Line 2 20 20 Oral 60 Other: Voiding Method Diaper Diaper Weight 71.5 kg PHYSICAL EXAMINATION: GENERAL: 87-year-old gentleman, sleeping, difficult to arouse this morning. HEENT: Head is atraumatic, normocephalic. Pupils equal, round. Sclera anicteric. Conjunctiva are clear. Mucous membranes of the mouth are moist. Neck is supple. There is no elevated jugular venous pressure. No carotid bruit is heard. HEART EXAMINATION: Heart S1, S2 normal. No murmur or gallop heard. CHEST EXAMINATION: Lungs are clear to auscultation and precussion. No chest wall tenderness is noted on palpation or with deep breathing. ABDOMEN: Soft, nontender. Bowel sounds are heard. No organomegaly noted. EXTREMITIES: 2+ peripheral pulses with no evidence of peripheral edema and no calf tenderness noted. NEUROLOGIC [patient is sleeping, difficult to arouse Results 04/28/18 06:48 04/28/18 06:48 Cardiac Enzymes 04/27/18 04/27/18 04/27/18 Range/Units 13:36 13:36 19:19 AST 84 H (17-59) U/L CK-MB (CK-2) 26.2 H 27.6 H (0.0-2.4) ng/mL Troponin I 0.134 H* 0.152 H* (0.000-0.034) ng/mL 04/28/18 04/28/18 Range/Units 01:35 06:48 AST 95 H (17-59) U/L CK-MB (CK-2) 20.1 H (0.0-2.4) ng/mL Troponin I 0.188 H* (0.000-0.034) ng/mL Coagulation 04/27/18 Range/Units 13:36 PT 11.1 (9.0-12.0) sec APTT 24.4 (22.0-30.0) sec CBC 04/27/18 04/28/18 Range/Units 13:36 06:48 WBC 8.2 8.3 (3.8-10.6) k/uL RBC 3.91 L 4.10 L (4.30-5.90) m/uL Hgb 12.6 L 13.1 (13.0-17.5) gm/dL Hct 37.5 L 39.6 (39.0-53.0) % Plt Count 199 211 (150-450) k/uL Comprehensive Metabolic Panel 04/27/18 04/28/18 Range/Units 13:36 06:48 Sodium 140 141 (137-145) mmol/L Potassium 4.0 4.5 (3.5-5.1) mmol/L Chloride 107 106 (98-107) mmol/L Carbon Dioxide 29 29 (22-30) mmol/L BUN 16 15 (9-20) mg/dL Creatinine 0.76 0.81 (0.66-1.25) mg/dL Glucose 91 75 (74-99) mg/dL Calcium 9.5 9.5 (8.4-10.2) mg/dL AST 84 H 95 H (17-59) U/L ALT 37 39 (21-72) U/L Alkaline Phosphatase 35 L 41 (38-126) U/L Total Protein 6.0 L 6.1 L (6.3-8.2) g/dL Albumin 3.5 3.6 (3.5-5.0) g/dL Current Medications Generic Name Dose Route Start Last Admin Trade Name Freq PRN Reason Stop Dose Admin Aspirin 325 mg 04/28/18 09:00 Aspirin PO DAILY BRANDEN Haloperidol Lactate 0.5 mg 04/27/18 18:42 04/27/18 21:58 Haldol IVP 0.5 mg Q6HR PRN Administration Agitation or Acute Psychosis Heparin Sodium (Porcine) 5,000 unit 04/27/18 16:45 04/27/18 23:15 Heparin SQ Not Given Q8HR BRANDEN Lorazepam 0.5 mg 04/27/18 18:04 Ativan IV Q4HR PRN Anxiety Naloxone HCl 0.2 mg 04/27/18 16:23 Narcan IV Q2M PRN Opioid Reversal Intake and Output 04/27/18 04/28/18 04/28/18 22:59 06:59 14:59 Intake Total 20 80 Balance 20 80 Intake: IV 20 20 Invasive Line 2 20 20 Oral 60 Other: Voiding Method Diaper Diaper Weight 71.5 kg 04/28/18 06:48 04/28/18 06:48 EKG Interpretations (text) EKG shows normal sinus rhythm with no acute changes. Assessment and Plan Plan: Assessment and plan #1 mental status changes in a patient with known advanced Alzheimer's dementia, recently started on Seroquel. #2 colon cancer with history of bowel resection. #3 abnormal CK-MB and troponins, not consistent with acute coronary syndrome Plan We will obtain an echocardiogram with Doppler study. Decrease aspirin 81 mg daily. Continue conservative medical therapy only and further recommendations to follow. DNP note has been reviewed, I agree with a documented findings and plan of care. Patient was seen and examined.
[2018-04-28] MEDS ORDERED: MELATONIN 5 MG TABLET PO PRN (11:38)
--- NOTE | 2018-04-28 11:46 | ECHOF ---
Referral Reason:abn trop MEASUREMENTS -------- HEIGHT: 182.9 cm WEIGHT: 71.2 kg BP: IVSd: 1.4 cm (0.6 - 1.1) LVIDd: 2.8 cm (3.9 - 5.3) LVPWd: 1.6 cm (0.6 - 1.1) IVSs: 1.8 cm LVIDs: 1.1 cm LVPWs: 1.1 cm LAESV Index (A-L): 23.53 ml/m Ao Diam: 3.4 cm (2.0 - 3.7) AV Cusp: 1.9 cm (1.5 - 2.6) LA Diam: 2.9 cm (2.7 - 3.8) MV EXCURSION: 21.866 mm (> 18.000) MV EF SLOPE: 61 mm/s (70 - 150) EPSS: 3.1 cm MV E Jeff: 0.72 m/s MV DecT: 202 ms MV A Jeff: 0.70 m/s MV E/A Ratio: 1.04 RAP: 5.00 mmHg RVSP: 12.73 mmHg FINDINGS -------- Sinus rhythm. This was a technically good study. The left ventricular size is normal. There is moderate concentric left ventricular hypertrophy. O verall left ventricular systolic function is normal with, an EF between 55 - 60 %. The right ventricle is normal in size and function. Normal LA size by volume 22+/-6 ml/m2. The right atrium is normal in size. Aortic valve is trileaflet and is mildly thickened. The mitral valve leaflets are mildly thickened. Mild mitral annular calcification present. Modera te mitral regurgitation is present. Mild tricuspid regurgitation present. The right ventricular systolic pressure, as measured by Doppl er, is 12.73mmHg. Trace/mild (physiologic) pulmonic regurgitation. The aortic root size is normal. The pericardium is normal. CONCLUSIONS -------- 1. Sinus rhythm. 2. This was a technically good study. 3. The left ventricular size is normal. 4. There is moderate concentric left ventricular hypertrophy. 5. Overall left ventricular systolic function is normal with, an EF between 55 - 60 %. 6. The right ventricle is normal in size and function. 7. Normal LA size by volume 22+/-6 ml/m2. 8. The right atrium is normal in size. 9. Aortic valve is trileaflet and is mildly thickened. 10. The mitral valve leaflets are mildly thickened. 11. Mild mitral annular calcification present. 12. Moderate mitral regurgitation is present. 13. Mild tricuspid regurgitation present. 14. The right ventricular systolic pressure, as measured by Doppler, is 12.73mmHg. 15. Trace/mild (physiologic) pulmonic regurgitation. 16. The aortic root size is normal. 17. The pericardium is normal. COATER OPERATOR: Pamela Stuart RDCS
[2018-04-28] MEDS ORDERED: SODIUM CHLORIDE 0.9% 1,000 ML IV ONE (11:55)
[2018-04-28] MEDS: ASPIRIN 325 MG TAB PO SCH (12:28)
[2018-04-28] MEDS: HEPARIN SODIUM,PORCINE 5,000 UNIT/ML 1 ML VIAL SQ SCH ×3 (12:28→23:15)
--- NOTE | 2018-04-28 14:02 | P.HP ---
Psychiatric H&P - . H&P Date: 04/28/18 History & Physical: Allergies Allergy/AdvReac Type Severity Reaction Status Date / Time No Known Allergies Allergy Verified 04/27/18 14:41 Vital Signs Temp 96.9 F L 04/28/18 08:00 Pulse 79 04/28/18 12:15 Resp 18 04/28/18 12:15 BP 137/73 04/28/18 12:15 Pulse Ox 99 04/28/18 12:15 Intake & Output 04/27/18 04/28/18 04/28/18 18:59 06:59 18:59 Intake Total 100 100 Balance 100 100 Weight 79.379 kg 71.5 kg Intake: IV 40 Invasive Line 2 40 Oral 60 100 Other: Voiding Method Diaper Diaper # Voids 2 Laboratory Last Values WBC 8.3 k/uL (3.8-10.6) 04/28/18 06:48 RBC 4.10 m/uL (4.30-5.90) L 04/28/18 06:48 Hgb 13.1 gm/dL (13.0-17.5) 04/28/18 06:48 Hct 39.6 % (39.0-53.0) 04/28/18 06:48 MCV 96.4 fL (80.0-100.0) 04/28/18 06:48 MCH 31.9 pg (25.0-35.0) 04/28/18 06:48 MCHC 33.1 g/dL (31.0-37.0) 04/28/18 06:48 RDW 13.4 % (11.5-15.5) 04/28/18 06:48 Plt Count 211 k/uL (150-450) 04/28/18 06:48 Neutrophils % 68 % 04/28/18 06:48 Lymphocytes % 19 % 04/28/18 06:48 Monocytes % 7 % 04/28/18 06:48 Eosinophils % 5 % 04/28/18 06:48 Basophils % 1 % 04/28/18 06:48 Neutrophils # 5.6 k/uL (1.3-7.7) 04/28/18 06:48 Lymphocytes # 1.5 k/uL (1.0-4.8) 04/28/18 06:48 Monocytes # 0.6 k/uL (0-1.0) 04/28/18 06:48 Eosinophils # 0.4 k/uL (0-0.7) 04/28/18 06:48 Basophils # 0.1 k/uL (0-0.2) 04/28/18 06:48 PT 11.1 sec (9.0-12.0) 04/27/18 13:36 INR 1.2 (<1.2) H 04/27/18 13:36 APTT 24.4 sec (22.0-30.0) 04/27/18 13:36 Sodium 141 mmol/L (137-145) 04/28/18 06:48 Potassium 4.5 mmol/L (3.5-5.1) 04/28/18 06:48 Chloride 106 mmol/L (98-107) 04/28/18 06:48 Carbon Dioxide 29 mmol/L (22-30) 04/28/18 06:48 Anion Gap 6 mmol/L 04/28/18 06:48 BUN 15 mg/dL (9-20) 04/28/18 06:48 Creatinine 0.81 mg/dL (0.66-1.25) 04/28/18 06:48 Est GFR (CKD-EPI)AfAm >90 (>60 ml/min/1.73 sqM) 04/28/18 06:48 Est GFR (CKD-EPI)NonAf 79 (>60 ml/min/1.73 sqM) 04/28/18 06:48 Glucose 75 mg/dL (74-99) 04/28/18 06:48 Calcium 9.5 mg/dL (8.4-10.2) 04/28/18 06:48 Total Bilirubin 1.2 mg/dL (0.2-1.3) 04/28/18 06:48 AST 95 U/L (17-59) H 04/28/18 06:48 ALT 39 U/L (21-72) 04/28/18 06:48 Alkaline Phosphatase 41 U/L (38-126) 04/28/18 06:48 Total Creatine Kinase 1262 U/L (55-170) H* 04/28/18 01:35 CK-MB (CK-2) 20.1 ng/mL (0.0-2.4) H 04/28/18 01:35 CK-MB (CK-2) Rel Index 1.6 04/28/18 01:35 Troponin I 0.188 ng/mL (0.000-0.034) H* 04/28/18 01:35 Total Protein 6.1 g/dL (6.3-8.2) L 04/28/18 06:48 Albumin 3.6 g/dL (3.5-5.0) 04/28/18 06:48 Urine Color Yellow 04/27/18 14:00 Urine Appearance Clear (Clear) 04/27/18 14:00 Urine pH 5.5 (5.0-8.0) 04/27/18 14:00 Ur Specific [place] 1.015 (1.001-1.035) 04/27/18 14:00 Urine Protein Negative (Negative) 04/27/18 14:00 Urine Glucose (UA) Negative (Negative) 04/27/18 14:00 Urine Ketones Trace (Negative) H 04/27/18 14:00 Urine Blood Negative (Negative) 04/27/18 14:00 Urine Nitrite Negative (Negative) 04/27/18 14:00 Urine Bilirubin Negative (Negative) 04/27/18 14:00 Urine Urobilinogen <2.0 mg/dL (<2.0) 04/27/18 14:00 Ur Leukocyte Esterase Negative (Negative) 04/27/18 14:00 Urine Opiates Screen Not Detected (NotDetected) 04/27/18 14:00 Ur Oxycodone Screen Not Detected (NotDetected) 04/27/18 14:00 Urine Methadone Screen Not Detected (NotDetected) 04/27/18 14:00 Ur Propoxyphene Screen Not Detected (NotDetected) 04/27/18 14:00 Ur Barbiturates Screen Not Detected (NotDetected) 04/27/18 14:00 U Tricyclic Antidepress Detected (NotDetected) H 04/27/18 14:00 Ur Phencyclidine Scrn Not Detected (NotDetected) 04/27/18 14:00 Ur Amphetamines Screen Not Detected (NotDetected) 04/27/18 14:00 U Methamphetamines Scrn Not Detected (NotDetected) 04/27/18 14:00 U Benzodiazepines Scrn Detected (NotDetected) H 04/27/18 14:00 Urine Cocaine Screen Not Detected (NotDetected) 04/27/18 14:00 U Marijuana (THC) Screen Not Detected (NotDetected) 04/27/18 14:00 Assessment and Plan Assessment: Patient is a pleasant 87-year-old male presenting to the emergency Department with complaints of reported change in mental status. Patient is altered and provides limited history. Patient was reportedly recently in the emergency department and started on Seroquel. Patient denies any complaints. - Related Data Home Medications Medication Instructions Recorded Confirmed Docusate [Colace] 100 mg PO HS 01/01/18 04/27/18 Vit C/E/Zn/Coppr/Lutein/Zeaxan 1 cap PO DAILY 01/01/18 04/27/18 [Preservision Areds 2 Softgel] Acetaminophen/Diphenhydramine 1 - 2 tab PO HS 04/27/18 04/27/18 [Tylenol PM 500-25mg] Aspirin EC [Ecotrin Low Dose] 81 mg PO HS 04/27/18 04/27/18 Hydrochlorothiazide 12.5 mg PO DAILY 04/27/18 04/27/18 LORazepam [Ativan] 0.5 mg PO BID PRN 04/27/18 04/27/18 Melatonin 10 mg PO HS PRN 04/27/18 04/27/18 OLANZapine [ZyPREXA] 2.5 mg PO HS 04/27/18 04/27/18 QUEtiapine [SEROquel] 25 mg PO HS 04/27/18 04/27/18 Super B Complex 1 tab PO DAILY 04/27/18 04/27/18 diphenhydrAMINE [Benadryl] 25 mg PO HS PRN 04/27/18 04/27/18 Patient has a history of Alzheimer's dementia, no hypertension, no diabetes, no hyperlipidemia who according to the son was walking up to a couple miles a day up to 2 weeks ago. He has been noticed to have progression in his Alzheimer's dementia. He was brought to the emergency room because of mental status changes and hallucinations and was started on Seroquel. According to the son, he went over to his home and he was much more confused than usual, he was actually on the floor, had lost control of his urine, somewhat unresponsive at times, he was combative on arrival here. Troponins were drawn in the emergency room and for this reason a cardiology consultation was obtained. Brain CT on arrival here showed age-related atrophic and chronic small vessel ischemic change without acute intracranial process. Chest x-ray showed chronic changes without evidence for acute pulmonary disease. Past Medical History: Cancer, Dementia, Memory Impairment Additional Past Medical History / Comment(s): falls, past uti, colon cancer/ colostomy, incont of urine, past took meds for high choleterol -none now. macular degeneration. per family -up most of the night/walks around.uses walker/ cane. 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 Past Anesthesia/Blood Transfusion Reactions: Previous Problems w/ Anesthesia Additional Past Anesthesia/Blood Transfusion Reaction / Comment(s): has had increased confusion/hallucinations after sx. Smoking Status: Former smoker - Past Family History Father Additional Family Medical History / Comment(s): 'heart problems" Mother Additional Family Medical History / Comment(s): "heart problems" Mental Status Examination - this is a pleasant 87-year-old male who is brought in for altered mental status examination. He is being prepped for an EEG today was able to answer questions during the EEG in a polite soft tone. General Appearance: [casual, appears stated age Speech/Language: [slow, mumbling, hesitant, halting, monotone, soft] Attitude/Behavior: [cooperative Mood: [euthymic, Affect: [flat, incongruent, blunted constricted] Orientation: [time, person, place situation] Thought Content: [wnl Risk Factors: [He is not suicidal (ideations, plan), and/or Homicidal (ideations , plan)] Perception: [wnl, denies any hallucinations (auditory, visual, tactile) Thought Processes: [concrete, circumstantial Concentration/Attention Span: [impaired] [Per observation and interview with the patient] Recent Memory: [ impaired] [0 out of 3 in 3 minutes] Remote Memory: [wnl ] [past events, as related history] Intelligence: [average] [based on history, based on vocabulary, syntax, grammar , and content] Judgement: poor] [per patient's behavior/history of present illness] Insight: poor] [understanding severity of illness/history of present illness] Psychiatric clinical impression: This man obviously has dementia with agitation. Seems to be progressive in nature and he would benefit from a structured environment Psychiatric recommendations: Use of 2 antipsychotics was not indicated and elderly. Seroquel will be the drug of choice not to exceed 100 mg at bedtime. He would benefit use of a cholinesterase inhibitor and Namenda a NMDA receptor molecule. Thank you for the consult Roberth Mayfield D.O. PhD
--- NOTE | 2018-04-28 14:25 | P.HPIM ---
History of Present Illness H&P Date: 04/28/18 Chief Complaint: Mental status changes This is an 87-year-old male patient who is currently living in assisted living facility, patient of Dr. cameron with past medical history of dementia, colon cancer status post resection in colostomy placement done in November 2017 at [facility]. 05/20 lymph nodes were positive for cancer. No chemotherapy or radiation therapy. Patient also had of right shoulder surgery for recurrent cancer [address] Barrientos at [facility]. Patient' s son Campos is at the bedside and states that normally the patient is walking 2-1/ 2 miles 3 times per week. He is usually able to shower and take care of some basic needs. Patient was brought into the ER on Thursday for worsening confusion and aggression and agitation. Patient had some increased confusion. There was concern for urinary tract infection. His vital signs were stable. There is no leukocytosis, lab work essentially unremarkable. Urinalysis was negative for infection. Patient was given prescription for Ativan and Seroquel and son states he has only gone downhill since then. He is now seen in talking to people he is no longer recognizing family members as of Thursday morning. He was not opening his eyes. He has had confusion for the past 3 years but according to the son not officially diagnosed. He has a distrust for others with this confusion. He does not have any history of Parkinson's, tremors. He had a fall about 3 months ago and he does have lightheadedness when he gets up too fast. He has a cane or walker but wanted home usually doesn't use anything for ambulation. Family brought patient back in the emergency center yesterday due to worsening mental status. His CK was found to be 1230, troponin was 0.134. Urine drug screen was positive for tricyclic antidepressants and benzodiazepines. Patient was given 1 L of IV fluids and admitted to the selective care unit with consults for neurology regarding mental status change, cardiology for elevated troponins and psychiatry for mental status changes. At the time of this evaluation, son states patient's mental status is the best that it has been. Patient denies having any back pain, chest pain, abdominal pain. No nausea or vomiting, no cough. CAT scan of the brain showed age related atrophy and chronic small vessel ischemic change without acute findings. Chest x-ray showed chronic changes. Apparently there has been attempted at an MRI in the past the patient was not able to tolerate. Son states the patient will need to go to subacute rehab as the assisted living will not take the patient back in this condition. Patient was seen by Dr. Michael last night. Recommendations for EEG and psychiatric evaluation. Physical therapy and social security specialist consult. Patient has been seen by psychiatry with both that he has worsening Alzheimer's dementia with agitation. Seems to be progressive in nature would benefit from structured environment. Seroquel is a drug of choice not to exceed 100 mg at bedtime. He would benefit from a cholinesterase inhibitor and Namenda. Echocardiogram reveals EF of 55-60%, moderate concentric left ventricular hypertrophy, mild mitral regurgitation, mild tricuspid regurgitation. Cardiology is following and elevated troponins not consistent with acute coronary syndrome. Review of Systems ROS unobtainable: due to mental status Past Medical History Past Medical History: Cancer, Dementia, Memory Impairment Additional Past Medical History / Comment(s): falls, past uti, colon cancer/ colostomy, incont of urine, past took meds for high choleterol -none now. macular degeneration. per family -up most of the night/walks around.uses walker/ cane. 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 Past Anesthesia/Blood Transfusion Reactions: Previous Problems w/ Anesthesia Additional Past Anesthesia/Blood Transfusion Reaction / Comment(s): has had increased confusion/hallucinations after sx. Smoking Status: Former smoker Additional Past Alcohol Use History / Comment(s): Patient was a smoker of a pack per day for 20 or more years. He quit smoking 45 years ago. No alcohol abuse. Patient currently residing at assisted living facility. - Past Family History Father Additional Family Medical History / Comment(s): Father at age 85 from coronary artery disease Mother Additional Family Medical History / Comment(s): Mother at age 85 from coronary artery disease but also had end-stage renal disease and diabetes Brother(s) Additional Family Medical History / Comment(s): Patient has 2 brothers and one with dementia and one from rheumatoid arthritis. Son(s) Additional Family Medical History / Comment(s): Patient has 4 children. One son has history of coronary artery disease status post 4 vessel CABG and history of bladder cancer. Patient has 1 daughter with history of coronary artery disease and 2 stents and a second daughter that had a two-vessel CABG. Medications and Allergies Home Medications Medication Instructions Recorded Confirmed Type Docusate [Colace] 100 mg PO HS 01/01/18 04/27/18 History Vit C/E/Zn/Coppr/Lutein/Zeaxan 1 cap PO DAILY 01/01/18 04/27/18 History [Preservision Areds 2 Softgel] Acetaminophen/Diphenhydramine 1 - 2 tab PO HS 04/27/18 04/27/18 History [Tylenol PM 500-25mg] Aspirin EC [Ecotrin Low Dose] 81 mg PO HS 04/27/18 04/27/18 History Hydrochlorothiazide 12.5 mg PO DAILY 04/27/18 04/27/18 History LORazepam [Ativan] 0.5 mg PO BID PRN 04/27/18 04/27/18 History Melatonin 10 mg PO HS PRN 04/27/18 04/27/18 History OLANZapine [ZyPREXA] 2.5 mg PO HS 04/27/18 04/27/18 History QUEtiapine [SEROquel] 25 mg PO HS 04/27/18 04/27/18 History Super B Complex 1 tab PO DAILY 04/27/18 04/27/18 History diphenhydrAMINE [Benadryl] 25 mg PO HS PRN 04/27/18 04/27/18 History Allergies Allergy/AdvReac Type Severity Reaction Status Date / Time No Known Allergies Allergy Verified 04/27/18 14:41 Physical Exam Vitals: Vital Signs Temp Pulse Pulse Resp BP BP Pulse Ox 04/28/18 04:00 97.5 F L 82 16 136/72 96 04/28/18 00:00 97.1 F L 81 17 131/67 97 04/27/18 20:00 97.7 F 83 16 144/75 100 04/27/18 18:14 97.1 F L 85 20 142/86 100 04/27/18 15:30 71 18 142/79 96 04/27/18 14:30 75 14 141/81 04/27/18 14:00 73 16 145/78 97 04/27/18 13:30 71 15 157/83 98 04/27/18 13:07 98.0 F 66 20 157/83 96 Intake and Output 04/27/18 04/28/18 04/28/18 22:59 06:59 14:59 Intake Total 20 80 Balance 20 80 Intake: IV 20 20 Invasive Line 2 20 20 Oral 60 Other: Voiding Method Diaper Diaper Weight 71.5 kg Gen: This is an 87-year-old male. He is in bed awake but appears to be drowsy and sleepy. He is able to answer a few simple questions. He does realize that he is in the hospital. HEENT: Head is atraumatic, normocephalic. Pupils equal, round. Sclerae is anicteric. NECK: Supple. No JVD. No lymphadenopathy. No thyromegaly. LUNGS: Clear to auscultation. No wheezes or rhonchi. No intercostal retractions. HEART: Regular rate and rhythm. No murmur. ABDOMEN: Soft. Bowel sounds are present. No masses. No tenderness. Colostomy in place. EXTREMITIES: No pedal edema. No calf tenderness. Dorsalis pedis +2 bilaterally NEUROLOGICAL: Patient is awake, alert and oriented x1-2. No focal neural deficits Results CBC & Chem 7: 04/28/18 06:48 04/28/18 06:48 Labs: Abnormal Lab Results - Last 24 Hours (Table) 04/27/18 04/27/18 04/27/18 Range/Units 13:36 13:36 13:36 RBC 3.91 L (4.30-5.90) m/uL Hgb 12.6 L (13.0-17.5) gm/dL Hct 37.5 L (39.0-53.0) % INR (<1.2) AST 84 H (17-59) U/L Alkaline Phosphatase 35 L (38-126) U/L Total Creatine Kinase 1230 H* (55-170) U/L CK-MB (CK-2) 26.2 H (0.0-2.4) ng/mL Troponin I 0.134 H* (0.000-0.034) ng/mL Total Protein 6.0 L (6.3-8.2) g/dL Urine Ketones (Negative) U Tricyclic Antidepress (NotDetected) U Benzodiazepines Scrn (NotDetected) 04/27/18 04/27/18 04/27/18 Range/Units 13:36 14:00 19:19 RBC (4.30-5.90) m/uL Hgb (13.0-17.5) gm/dL Hct (39.0-53.0) % INR 1.2 H (<1.2) AST (17-59) U/L Alkaline Phosphatase (38-126) U/L Total Creatine Kinase 1458 H* (55-170) U/L CK-MB (CK-2) 27.6 H (0.0-2.4) ng/mL Troponin I 0.152 H* (0.000-0.034) ng/mL Total Protein (6.3-8.2) g/dL Urine Ketones Trace H (Negative) U Tricyclic Antidepress Detected H (NotDetected) U Benzodiazepines Scrn Detected H (NotDetected) 04/28/18 04/28/18 04/28/18 Range/Units 01:35 06:48 06:48 RBC 4.10 L (4.30-5.90) m/uL Hgb (13.0-17.5) gm/dL Hct (39.0-53.0) % INR (<1.2) AST 95 H (17-59) U/L Alkaline Phosphatase (38-126) U/L Total Creatine Kinase 1262 H* (55-170) U/L CK-MB (CK-2) 20.1 H (0.0-2.4) ng/mL Troponin I 0.188 H* (0.000-0.034) ng/mL Total Protein 6.1 L (6.3-8.2) g/dL Urine Ketones (Negative) U Tricyclic Antidepress (NotDetected) U Benzodiazepines Scrn (NotDetected) Thrombosis Risk Factor Assmnt - DVT/VTE Prophylaxis DVT/VTE Prophylaxis: Pharmacologic Prophylaxis ordered - Choose All That Apply Any of the Below Risk Factors Present?: Yes Each Factor Represents 1 point: Acute ME Other Risk Factors: Yes Each Risk Factor Represents 2 Points: Patient confined to bed Each Risk Factor Represents 3 Points: Age 75 years or older Other congenital or acquired thrombophilia - If yes, enter type in comment: No Thrombosis Risk Factor Assessment Total Risk Factor Score: 6 Thrombosis Risk Factor Assessment Level: High Risk Assessment and Plan Plan: 1. Mental status changes, possible metabolic encephalopathy, possibly related to worsening dementia, metastatic disease from colon cancer, medication effects , possible seizure. Consults with neurology and psychiatry appreciated patient is unable to undergo MRI which will be canceled. EEG has been ordered. Patient did require 1 dose of Haldol last evening. Patient was started on full- strength aspirin. Seroquel, Benadryl and Tylenol PM all discontinued for now. Patient was started on Remeron 7.5 mg at bedtime and Zyprexa continued 2. Elevated troponins, acute coronary syndrome ruled out. Cardiology consult appreciated. Echocardiogram as above. 3. Rhabdomyolysis with elevated CK. Patient will get 1 L of IV fluids. 4. History of colon cancer status post resection and colostomy in November 2017. Patient has had no problems with function of colostomy. 5. Hypertension. Patient has been on hydrochlorothiazide 12.5 mg daily. 6. DVT prophylaxis. Lovenox. 7. GI prophylaxis. Pepcid. 8. Dehydration. IV fluids started. Patient will be admitted to the hospital for a minimum of 2 night stay. Discharge plan: Subacute rehab Impression and plan of care have been directed as dictated by the signing physician. Cristine Holder nurse practitioner acting as scribe for signing physician.
[2018-04-28] MEDS: DOCUSATE 100 MG CAP PO SCH (19:49)
[2018-04-28] MEDS: OLANZapine 2.5 MG TAB PO SCH (19:51)
--- NOTE | 2018-04-28 19:59 | EEG ---
ELECTROENCEPHALOGRAM REPORT DATE OF EE04/28/2018 ELECTROENCEPHALOGRAPHIC EXAMINATION REPORT: INDICATION FOR EXAMINATION: This patient is an 87-year-old male being evaluated for altered mental status. AGE: [age]. EEG FINDINGS: A routine 21-channel awake digital EEG recording was accomplished utilizing the 10-20 international system with bipolar and referential montages. The background activity in the most alert resting state consists of a low to medium amplitude, fairly well developed well sustained 7-8 Hz activity over the posterior head regions. This posterior rhythm attenuates to eye opening. There is a small amount of low amplitude 18-20 Hz beta activity seen maximally over the anterior head regions. Muscle and movement artifact was observed on a few occasions during the tracing. Hyperventilation was not performed. Photic stimulation at flash frequencies of 2-30 Hz produced a minimal occipital driving response. No epileptiform discharges were seen. IMPRESSION: This EEG is within normal limits for the patient's age. The EEG failed to reveal any focal, lateralized, or epileptiform abnormalities. Clinical correlation is recommended. MMODL / IJN: [id number] /
[2018-04-28] MEDS ORDERED: MIRTAZAPINE 15 MG TAB PO SCH (21:00)
[2018-04-29] MEDS ORDERED: HALOPERIDOL LACTATE 5 MG/ML 1 ML VIAL IM PRN (01:46)
[2018-04-29] MEDS: ASPIRIN 325 MG TAB PO SCH (08:26)
[2018-04-29] MEDS: FAMOTIDINE 20 MG TAB PO SCH (08:26)
[2018-04-29] MEDS: HEPARIN SODIUM,PORCINE 5,000 UNIT/ML 1 ML VIAL SQ SCH ×3 (08:26→23:00)
[2018-04-29] MEDS: VIT A,C & E-LUTEIN-MINERALS 1 EACH TAB PO SCH (08:26)
[2018-04-29] MEDS ORDERED: SUPER B COMPLEX PO SCH (09:00)
[2018-04-29 09:51] LABS: ALT 39 U/L (21-72); AST 82 U/L (17-59); Albumin 3.3 g/dL (3.5-5.0); Alkaline Phosphatase 39 U/L (38-126); Anion Gap 6 mmol/L; Blood Urea Nitrogen 16 mg/dL (9-20); Calcium 9.4 mg/dL (8.4-10.2); Carbon Dioxide 26 mmol/L (22-30); Chloride 108 mmol/L (98-107); Creatine Kinase 935 U/L (55-170); Glucose 101 mg/dL (74-99); Potassium 3.8 mmol/L (3.5-5.1); Sodium 140 mmol/L (137-145); Total Protein 5.8 g/dL (6.3-8.2)
--- NOTE | 2018-04-29 13:59 | P.PN ---
Subjective Progress Note Date: 04/29/18 This is an 87-year-old male patient who is currently living in assisted living facility, patient of Dr. cameron with past medical history of dementia, colon cancer status post resection in colostomy placement done in November 2017 at [facility]. 05/20 lymph nodes were positive for cancer. No chemotherapy or radiation therapy. Patient also had of right shoulder surgery for recurrent cancer [address] Barrientos at [facility]. Patient' s son Campos is at the bedside and states that normally the patient is walking 2-1/ 2 miles 3 times per week. He is usually able to shower and take care of some basic needs. Patient was brought into the ER on Thursday for worsening confusion and aggression and agitation. Patient had some increased confusion. There was concern for urinary tract infection. His vital signs were stable. There is no leukocytosis, lab work essentially unremarkable. Urinalysis was negative for infection. Patient was given prescription for Ativan and Seroquel and son states he has only gone downhill since then. He is now seen in talking to people he is no longer recognizing family members as of Thursday morning. He was not opening his eyes. He has had confusion for the past 3 years but according to the son not officially diagnosed. He has a distrust for others with this confusion. He does not have any history of Parkinson's, tremors. He had a fall about 3 months ago and he does have lightheadedness when he gets up too fast. He has a cane or walker but wanted home usually doesn't use anything for ambulation. Family brought patient back in the emergency center yesterday due to worsening mental status. His CK was found to be 1230, troponin was 0.134. Urine drug screen was positive for tricyclic antidepressants and benzodiazepines. Patient was given 1 L of IV fluids and admitted to the selective care unit with consults for neurology regarding mental status change, cardiology for elevated troponins and psychiatry for mental status changes. At the time of this evaluation, son states patient's mental status is the best that it has been. Patient denies having any back pain, chest pain, abdominal pain. No nausea or vomiting, no cough. CAT scan of the brain showed age related atrophy and chronic small vessel ischemic change without acute findings. Chest x-ray showed chronic changes. Apparently there has been attempted at an MRI in the past the patient was not able to tolerate. Son states the patient will need to go to subacute rehab as the assisted living will not take the patient back in this condition. Patient was seen by Dr. Michael last night. Recommendations for EEG and psychiatric evaluation. Physical therapy and social media executive consult. Patient has been seen by psychiatry with both that he has worsening Alzheimer's dementia with agitation. Seems to be progressive in nature would benefit from structured environment. Seroquel is a drug of choice not to exceed 100 mg at bedtime. He would benefit from a cholinesterase inhibitor and Namenda. Echocardiogram reveals EF of 55-60%, moderate concentric left ventricular hypertrophy, mild mitral regurgitation, mild tricuspid regurgitation. Cardiology is following and elevated troponins not consistent with acute coronary syndrome. 04/29: EEG is within normal limits for patient's age. No focal, lateralizing form abnormalities. Family have decided on [facility] for subacute rehab. PT and OT are following the patient. Speech therapy has evaluated the patient with., Thin and nectar thick liquids and he was able to tolerate with only mild difficulty with oral manipulation. No overt aspiration. Recommend to continue nothing by mouth over the next couple of hours and if patient remains stable initiate pured and nectar thick liquids for dinner. One-on-one supervision only. Speech therapy will continue to monitor the patient. Patient did have significant confusion with aggressive behavior during the night and removed his IV. He did have restraints placed. He had Haldol which did not help. We are making changes to his medications based on psychiatry recommendations. Seroquel will be changed to 25 mg twice daily, Aricept and Namenda started. The patient is showing confusion at this time worse from yesterday. We have requested records from [facility] in [place] regarding his colon surgery/colon cancer. Repeat CK is 935. Review Of Systems: Constitutional: No fever, no chills, no night sweats. No weight change. EENT: No headache. No blurred vision or double vision, no loss of vision. + loss of Hearing. No nasal drainage or congestion. No epistaxis. No sore throat. Lungs: No shortness of breath, cough, no sputum production. No wheezing. Cardiovascular: No chest pain, no lower extremity edema. No palpitations. No paroxysmal nocturnal dyspnea. No orthopnea. No lightheadedness or dizziness. No syncopal episodes. Abdominal: No abdominal pain. No nausea, vomiting. No diarrhea. No constipation. No bloody or tarry stools.. No loss of appetite. Genitourinary: No dysuria, increased frequency, urgency. No urinary retention. Musculoskeletal: No myalgias. No muscle weakness, no gait dysfunction, no frequent falls. No back pain. No neck pain. Integumentary: No wounds, no lesions. No rash or pruritus. No unusual bruising. No change in hair or nails. Neurologic: No aphasia. No facial droop. + change in mentation. No head injury. No headache. No paralysis. No paresthesia. Psychiatric: No depression. + anxiety. Endocrine: No abnormal blood sugars. No weight change. No excessive sweating or thirst. No cold intolerance. No weight change. Objective - Vital Signs Vital signs: Vital Signs Temp 97.1 F L 04/29/18 07:31 Pulse 86 04/29/18 07:31 Resp 18 04/29/18 07:31 BP 136/77 04/29/18 07:31 Pulse Ox 97 04/29/18 07:31 Intake & Output 04/28/18 04/29/18 04/29/18 18:59 06:59 18:59 Intake Total 100 Balance 100 Weight 71.5 kg Intake: Oral 100 Other: Voiding Method Urinal Urinal Urinal # Voids 0 2 - Exam Gen: This is an 87-year-old male. He is in bed awake but appears to be alert but more confused from yesterday. He is able to follow a few simple commands. He does realize that he is in the hospital. HEENT: Head is atraumatic, normocephalic. Pupils equal, round. Sclerae is anicteric. NECK: Supple. No JVD. No lymphadenopathy. No thyromegaly. LUNGS: Clear to auscultation. No wheezes or rhonchi. No intercostal retractions. HEART: Regular rate and rhythm. No murmur. ABDOMEN: Soft. Bowel sounds are present. No masses. No tenderness. Colostomy in place. EXTREMITIES: No pedal edema. No calf tenderness. Dorsalis pedis +2 bilaterally NEUROLOGICAL: Patient is awake, alert and oriented x1. No focal neural deficits - Labs CBC & Chem 7: 04/28/18 06:48 04/29/18 09:10 Labs: Abnormal Lab Results - Last 24 Hours (Table) 04/29/18 Range/Units 09:10 Chloride 108 H (98-107) mmol/L Glucose 101 H (74-99) mg/dL AST 82 H (17-59) U/L Creatine Kinase 935 H (55-170) U/L Total Protein 5.8 L (6.3-8.2) g/dL Albumin 3.3 L (3.5-5.0) g/dL Assessment and Plan Plan: 1. Mental status changes, possible metabolic encephalopathy, possibly related to worsening dementia, metastatic disease from colon cancer, medication effects , possible seizure. Consults with neurology and psychiatry appreciated patient is unable to undergo MRI which will be canceled. EEG as above. Continue Haldol as needed Patient was started on full-strength aspirin. Benadryl and Tylenol PM all discontinued for now. Patient was started on Remeron which we will discontinue and place patient on Seroquel 25 mg twice daily, continue Zyprexa, Namenda and Aricept started. 2. Elevated troponins, acute coronary syndrome ruled out. Cardiology consult appreciated. Echocardiogram as above. 3. Rhabdomyolysis with elevated CK. Patient received 1 L of IV fluids. 4. History of colon cancer status post resection and colostomy in November 2017. Patient has had no problems with function of colostomy. 5. Hypertension. Patient has been on hydrochlorothiazide 12.5 mg daily discontinued due to dehydration. 6. DVT prophylaxis. Heparin subcu. 7. GI prophylaxis. Pepcid. 8. Dehydration. IV fluids provided. Discharge plan: Subacute rehab. Impression and plan of care have been directed as dictated by the signing physician. Cristine Holder nurse practitioner acting as scribe for signing physician.
[2018-04-29] MEDS: MEMANTINE 10 MG TAB PO SCH (14:44)
[2018-04-29] MEDS: QUEtiapine 25 MG TAB PO SCH ×2 (14:45→22:16)
[2018-04-29] MEDS ORDERED: QUEtiapine 50 MG TAB PO SCH ×2 (18:00→21:00)
[2018-04-29] MEDS: OLANZapine 2.5 MG TAB PO SCH (22:16)
[2018-04-29] MEDS: DOCUSATE 100 MG CAP PO SCH (22:16)
[2018-04-29] MEDS: DONEPEZIL 10 MG TAB PO SCH (22:16)
[2018-04-30] MEDS: QUEtiapine 25 MG TAB PO SCH (08:42)
[2018-04-30] MEDS: VIT A,C & E-LUTEIN-MINERALS 1 EACH TAB PO SCH (08:42)
[2018-04-30] MEDS: FAMOTIDINE 20 MG TAB PO SCH (08:42)
[2018-04-30] MEDS: MEMANTINE 10 MG TAB PO SCH (08:42)
[2018-04-30] MEDS: ASPIRIN 325 MG TAB PO SCH (08:42)
[2018-04-30] MEDS: HEPARIN SODIUM,PORCINE 5,000 UNIT/ML 1 ML VIAL SQ SCH ×3 (08:42→23:32)
[2018-04-30 08:47] LABS: ALT 45 U/L (21-72); AST 88 U/L (17-59); Albumin 3.4 g/dL (3.5-5.0); Alkaline Phosphatase 40 U/L (38-126); Anion Gap 7 mmol/L; Blood Urea Nitrogen 16 mg/dL (9-20); Calcium 9.5 mg/dL (8.4-10.2); Carbon Dioxide 27 mmol/L (22-30); Chloride 108 mmol/L (98-107); Creatine Kinase 619 U/L (55-170); Glucose 87 mg/dL (74-99); Potassium 3.9 mmol/L (3.5-5.1); Sodium 142 mmol/L (137-145); Total Bilirubin 1.1 mg/dL (0.2-1.3); Total Protein 5.9 g/dL (6.3-8.2)
--- NOTE | 2018-04-30 15:12 | P.PN ---
Subjective Progress Note Date: 04/30/18 This is an 87-year-old male patient who is currently living in assisted living facility, patient of Dr. cameron with past medical history of dementia, colon cancer status post resection in colostomy placement done in November 2017 at [facility]. 05/20 lymph nodes were positive for cancer. No chemotherapy or radiation therapy. Patient also had of right shoulder surgery for recurrent cancer [address] Barrientos at [facility]. Patient' s son Campos is at the bedside and states that normally the patient is walking 2-1/ 2 miles 3 times per week. He is usually able to shower and take care of some basic needs. Patient was brought into the ER on Thursday for worsening confusion and aggression and agitation. Patient had some increased confusion. There was concern for urinary tract infection. His vital signs were stable. There is no leukocytosis, lab work essentially unremarkable. Urinalysis was negative for infection. Patient was given prescription for Ativan and Seroquel and son states he has only gone downhill since then. He is now seen in talking to people he is no longer recognizing family members as of Thursday morning. He was not opening his eyes. He has had confusion for the past 3 years but according to the son not officially diagnosed. He has a distrust for others with this confusion. He does not have any history of Parkinson's, tremors. He had a fall about 3 months ago and he does have lightheadedness when he gets up too fast. He has a cane or walker but wanted home usually doesn't use anything for ambulation. Family brought patient back in the emergency center yesterday due to worsening mental status. His CK was found to be 1230, troponin was 0.134. Urine drug screen was positive for tricyclic antidepressants and benzodiazepines. Patient was given 1 L of IV fluids and admitted to the selective care unit with consults for neurology regarding mental status change, cardiology for elevated troponins and psychiatry for mental status changes. At the time of this evaluation, son states patient's mental status is the best that it has been. Patient denies having any back pain, chest pain, abdominal pain. No nausea or vomiting, no cough. CAT scan of the brain showed age related atrophy and chronic small vessel ischemic change without acute findings. Chest x-ray showed chronic changes. Apparently there has been attempted at an MRI in the past the patient was not able to tolerate. Son states the patient will need to go to subacute rehab as the assisted living will not take the patient back in this condition. Patient was seen by Dr. Michael last night. Recommendations for EEG and psychiatric evaluation. Physical therapy and social and human services assistant consult. Patient has been seen by psychiatry with both that he has worsening Alzheimer's dementia with agitation. Seems to be progressive in nature would benefit from structured environment. Seroquel is a drug of choice not to exceed 100 mg at bedtime. He would benefit from a cholinesterase inhibitor and Namenda. Echocardiogram reveals EF of 55-60%, moderate concentric left ventricular hypertrophy, mild mitral regurgitation, mild tricuspid regurgitation. Cardiology is following and elevated troponins not consistent with acute coronary syndrome. 04/29: EEG is within normal limits for patient's age. No focal, lateralizing form abnormalities. Family have decided on [facility] for subacute rehab. PT and OT are following the patient. Speech therapy has evaluated the patient with., Thin and nectar thick liquids and he was able to tolerate with only mild difficulty with oral manipulation. No overt aspiration. Recommend to continue nothing by mouth over the next couple of hours and if patient remains stable initiate pured and nectar thick liquids for dinner. One-on-one supervision only. Speech therapy will continue to monitor the patient. Patient did have significant confusion with aggressive behavior during the night and removed his IV. He did have restraints placed. He had Haldol which did not help. We are making changes to his medications based on psychiatry recommendations. Seroquel will be changed to 25 mg twice daily, Aricept and Namenda started. The patient is showing confusion at this time worse from yesterday. We have requested records from [facility] in [place] regarding his colon surgery/colon cancer. Repeat CK is 935. 04/30: The patient has had ongoing confusion as well as hallucinations. Family also concerned that he is not eating only taken a few bites. They state that he has had some reactions to Ativan which they would like to avoid. Ativan will be discontinued. We will plan to increase Seroquel. Discussed patient's poor prognosis with the family members at the bedside. Offered hospice as the best option. They would like to go to the hospice home. Consult will be placed. Speech therapy has evaluated and recommends meds crushed with applesauce and. Diet with nectar thick liquids. 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 Review Of Systems: No review as patient has confusion Objective - Vital Signs Vital signs: Vital Signs Temp 97.8 F 04/30/18 06:13 Pulse 86 04/30/18 06:13 Resp 17 04/30/18 06:13 BP 154/90 04/30/18 06:13 Pulse Ox 99 04/30/18 06:13 Intake & Output 04/29/18 04/30/18 04/30/18 18:59 06:59 18:59 Intake Total 200 Balance 200 Weight 71.5 kg Intake: Oral 200 Other: Voiding Method Urinal Diaper # Voids 0 3 # Bowel Movements 0 - Exam Gen: This is an 87-year-old male. He is in bed awake but appears to be alert but more confused from yesterday. He is able to follow a few simple commands. HEENT: Head is atraumatic, normocephalic. Pupils equal, round. Sclerae is anicteric. NECK: Supple. No JVD. No lymphadenopathy. No thyromegaly. LUNGS: Clear to auscultation. No wheezes or rhonchi. No intercostal retractions. HEART: Regular rate and rhythm. No murmur. ABDOMEN: Soft. Bowel sounds are present. No masses. No tenderness. Colostomy in place. EXTREMITIES: No pedal edema. No calf tenderness. Dorsalis pedis +2 bilaterally NEUROLOGICAL: Patient is awake, alert and oriented x1. No focal neural deficits - Labs CBC & Chem 7: 04/28/18 06:48 04/30/18 07:42 Labs: Abnormal Lab Results - Last 24 Hours (Table) 04/30/18 Range/Units 07:42 Chloride 108 H (98-107) mmol/L AST 88 H (17-59) U/L Creatine Kinase 619 H (55-170) U/L Total Protein 5.9 L (6.3-8.2) g/dL Albumin 3.4 L (3.5-5.0) g/dL Assessment and Plan Plan: 1. Mental status changes, possible metabolic encephalopathy, possibly related to worsening dementia, metastatic disease from colon cancer, medication effects , possible seizure. Consults with neurology and psychiatry appreciated patient is unable to undergo MRI which will be canceled. EEG has been ordered. Patient did require 1 dose of Haldol last evening. Patient was started on full- strength aspirin. Seroquel, Benadryl and Tylenol PM all discontinued for now. Patient was started on Remeron 7.5 mg at bedtime and Zyprexa continued. Seroquel increased 2. Elevated troponins, acute coronary syndrome ruled out. Cardiology consult appreciated. Echocardiogram as above. 3. Rhabdomyolysis with elevated CK. Patient will get 1 L of IV fluids. 4. History of colon cancer stage IV status post resection and colostomy in November 2017. Patient has had no problems with function of colostomy. 5. Hypertension. Patient has been on hydrochlorothiazide 12.5 mg daily. 6. DVT prophylaxis. Lovenox. 7. GI prophylaxis. Pepcid. 8. Dehydration. IV fluids started. 9. Advanced dementia Discharge plan: [facility] home Impression and plan of care have been directed as dictated by the signing physician. Cristine Holder nurse practitioner acting as scribe for signing physician.
[2018-04-30] MEDS: DONEPEZIL 10 MG TAB PO SCH (19:50)
[2018-04-30] MEDS: DOCUSATE 100 MG CAP PO SCH (19:50)
[2018-04-30] MEDS: QUEtiapine 50 MG TAB PO SCH (19:50)
[2018-04-30] MEDS: OLANZapine 2.5 MG TAB PO SCH (19:50)
[2018-05-01 07:44] VITALS: BP 131/69; PULSE 85; RESP 16; TEMP 99.4
[2018-05-01] MEDS: MEMANTINE 10 MG TAB PO SCH (08:25)
[2018-05-01] MEDS: HEPARIN SODIUM,PORCINE 5,000 UNIT/ML 1 ML VIAL SQ SCH (08:25)
[2018-05-01] MEDS: ASPIRIN 325 MG TAB PO SCH (08:25)
[2018-05-01] MEDS: VIT A,C & E-LUTEIN-MINERALS 1 EACH TAB PO SCH (08:25)
[2018-05-01] MEDS: FAMOTIDINE 20 MG TAB PO SCH (08:25)
[2018-05-01] MEDS: QUEtiapine 50 MG TAB PO SCH (08:26)
--- NOTE | 2018-05-01 10:53 | P.DS ---
Providers Date of admission: 04/27/18 16:31 Expected date of discharge: 05/01/18 Attending physician: Linh Barajas MD Consults: 04/27/18 16:20 Consult Physician Urgent Consulting Provider: Kaden Michael Consult Reason/Comments: ams Do you want consulting provider notified?: Yes 04/27/18 16:22 Consult Physician Urgent Consulting Provider: Roberth Mayfield Consult Reason/Comments: ams Do you want consulting provider notified?: Already Contacted 04/27/18 16:24 Consult Physician Urgent Consulting Provider: Som Holman Consult Reason/Comments: Cardiac evaluation Do you want consulting provider notified?: Yes [facility] Course: This is an 87-year-old male patient who is currently living in assisted living facility, patient of Dr. cameron with past medical history of dementia, colon cancer status post resection in colostomy placement done in November 2017 at [facility]. 05/20 lymph nodes were positive for cancer. No chemotherapy or radiation therapy. Patient also had of right shoulder surgery for recurrent cancer [address] Barrientos at [facility]. Patient' s son Campos is at the bedside and states that normally the patient is walking 2-1/ 2 miles 3 times per week. He is usually able to shower and take care of some basic needs. Patient was brought into the ER on Thursday for worsening confusion and aggression and agitation. Patient had some increased confusion. There was concern for urinary tract infection. His vital signs were stable. There is no leukocytosis, lab work essentially unremarkable. Urinalysis was negative for infection. Patient was given prescription for Ativan and Seroquel and son states he has only gone downhill since then. He is now seen in talking to people he is no longer recognizing family members as of Thursday morning. He was not opening his eyes. He has had confusion for the past 3 years but according to the son not officially diagnosed. He has a distrust for others with this confusion. He does not have any history of Parkinson's, tremors. He had a fall about 3 months ago and he does have lightheadedness when he gets up too fast. He has a cane or walker but wanted home usually doesn't use anything for ambulation. Family brought patient back in the emergency center yesterday due to worsening mental status. His CK was found to be 1230, troponin was 0.134. Urine drug screen was positive for tricyclic antidepressants and benzodiazepines. Patient was given 1 L of IV fluids and admitted to the selective care unit with consults for neurology regarding mental status change, cardiology for elevated troponins and psychiatry for mental status changes. At the time of this evaluation, son states patient's mental status is the best that it has been. Patient denies having any back pain, chest pain, abdominal pain. No nausea or vomiting, no cough. CAT scan of the brain showed age related atrophy and chronic small vessel ischemic change without acute findings. Chest x-ray showed chronic changes. Apparently there has been attempted at an MRI in the past the patient was not able to tolerate. Son states the patient will need to go to subacute rehab as the assisted living will not take the patient back in this condition. Patient was seen by Dr. Michael last night. Recommendations for EEG and psychiatric evaluation. Physical therapy and social worker clinical consult. Patient has been seen by psychiatry with both that he has worsening Alzheimer's dementia with agitation. Seems to be progressive in nature would benefit from structured environment. Seroquel is a drug of choice not to exceed 100 mg at bedtime. He would benefit from a cholinesterase inhibitor and Namenda. Echocardiogram reveals EF of 55-60%, moderate concentric left ventricular hypertrophy, mild mitral regurgitation, mild tricuspid regurgitation. Cardiology is following and elevated troponins not consistent with acute coronary syndrome. 04/29: EEG is within normal limits for patient's age. No focal, lateralizing form abnormalities. Family have decided on [facility] for subacute rehab. PT and OT are following the patient. Speech therapy has evaluated the patient with., Thin and nectar thick liquids and he was able to tolerate with only mild difficulty with oral manipulation. No overt aspiration. Recommend to continue nothing by mouth over the next couple of hours and if patient remains stable initiate pured and nectar thick liquids for dinner. One-on-one supervision only. Speech therapy will continue to monitor the patient. Patient did have significant confusion with aggressive behavior during the night and removed his IV. He did have restraints placed. He had Haldol which did not help. We are making changes to his medications based on psychiatry recommendations. Seroquel will be changed to 25 mg twice daily, Aricept and Namenda started. The patient is showing confusion at this time worse from yesterday. We have requested records from [facility] in [place] regarding his colon surgery/colon cancer. Repeat CK is 935. 04/30: The patient has had ongoing confusion as well as hallucinations. Family also concerned that he is not eating only taken a few bites. They state that he has had some reactions to Ativan which they would like to avoid. Ativan will be discontinued. We will plan to increase Seroquel. Discussed patient's poor prognosis with the family members at the bedside. Offered hospice as the best option. They would like to go to the hospice home. Consult will be placed. Speech therapy has evaluated and recommends meds crushed with applesauce and. Diet with nectar thick liquids. 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 05/01: Patient is less aggressive today but more comfortable. Daughter, MELL is on her way from [place] to sign papers and patient will be transferred to [facility] today once arrangements are completed. Discharge diagnoses: 1. Mental status changes, possible metabolic encephalopathy, possibly related to worsening dementia, metastatic disease from colon cancer, medication effects , possible seizure not completely ruled out. 2. Elevated troponins, acute coronary syndrome ruled out. 3. Rhabdomyolysis 4. History of colon cancer stage IV status post resection and colostomy in November 2017. 5. Hypertension. 6. Dehydration. 9. Advanced dementia Discharge plan: [facility] Impression and plan of care have been directed as dictated by the signing physician. Cristine Holder nurse practitioner acting as scribe for signing physician. Patient Condition at Discharge: Good Plan - Discharge Summary Discharge Rx Participant: No New Discharge Prescriptions: New Atropine Ophth Soln 1% 5Ml [Isopto Atropine 1% 5Ml] 2 drops PO Q4HR PRN #1 bottle PRN Reason: Secretions LORazepam ORAL CONC [Ativan Intensol] 2 mg PO Q4HR PRN #30 ml PRN Reason: Anxiety MORPHINE ORAL EVIN CONC 20mg/mL [Roxanol Oral Soln Conc 20MG/ML] 5 mg PO Q4H PRN #30 ml PRN Reason: Pain QUEtiapine [SEROquel] 50 mg PO BID tab Continue OLANZapine [ZyPREXA] 2.5 mg PO HS Discontinued Docusate [Colace] 100 mg PO HS Vit C/E/Zn/Coppr/Lutein/Zeaxan [Preservision Areds 2 Softgel] 1 cap PO DAILY QUEtiapine [SEROquel] 25 mg PO HS LORazepam [Ativan] 0.5 mg PO BID PRN PRN Reason: Anxiety diphenhydrAMINE [Benadryl] 25 mg PO HS PRN PRN Reason: Insomnia Melatonin 10 mg PO HS PRN PRN Reason: Insomnia Aspirin EC [Ecotrin Low Dose] 81 mg PO HS Super B Complex 1 tab PO DAILY Acetaminophen/Diphenhydramine [Tylenol PM 500-25mg] 1 - 2 tab PO HS Hydrochlorothiazide 12.5 mg PO DAILY Discharge Medication List OLANZapine [ZyPREXA] 2.5 mg PO HS 04/27/18 [History] Atropine Ophth Soln 1% 5Ml [Isopto Atropine 1% 5Ml] 2 drops PO Q4HR PRN #1 bottle 04/30/18 [Rx] LORazepam ORAL CONC [Ativan Intensol] 2 mg PO Q4HR PRN #30 ml 04/30/18 [Rx] MORPHINE ORAL EVIN CONC 20mg/mL [Roxanol Oral Soln Conc 20MG/ML] 5 mg PO Q4H PRN #30 ml 04/30/18 [Rx] QUEtiapine [SEROquel] 50 mg PO BID tab 04/30/18 [Rx] Follow up Appointment(s)/Referral(s): Manan Muñoz MD [Primary Care Provider] - As Needed
[2018-05-01] MEDS: MORPHINE CONC SOLN 10mg/0.5mL ORAL SYRG SL SCH ×3 (10:57→16:45)
== END 2018-05-01 17:07 | disposition hospice, inpatient (51) | DRG 56 ==
LOC: EC 13:00 → 3SCARD 16:31 → 4MS4W 04-28 17:02
PROVIDERS: ADMIT Internal Medicine; ATTEND Internal Medicine
DX: G30.9 Alzheimer's disease, unspecified (principal); G93.41 Metabolic encephalopathy; C77.2 Secondary and unspecified malignant neoplasm of intra-abdominal lymph nodes; F02.81 Dementia in other diseases classified elsewhere, unspecified severity, with behavioral disturbance; M62.82 Rhabdomyolysis; R77.8 Other specified abnormalities of plasma proteins; E86.0 Dehydration; H35.30 Unspecified macular degeneration; I10 Essential (primary) hypertension; Z87.891 Personal history of nicotine dependence; Z93.3 Colostomy status; Z87.440 Personal history of urinary (tract) infections; Z85.038 Personal history of other malignant neoplasm of large intestine; Z79.82 Long term (current) use of aspirin; Z79.899 Other long term (current) drug therapy; Z90.49 Acquired absence of other specified parts of digestive tract; Z85.831 Personal history of malignant neoplasm of soft tissue; Z82.49 Family history of ischemic heart disease and other diseases of the circulatory system
CPT/HCPCS: 36415; 70450; 71045; 71046; 80053; 80306; 81003; 82550; 82553; 84484; 85025; 85610; 85730; 93005; 93306; 94760; 95816; 96360; 99285